=== PATIENT | female | born 1950 | race Caucasian/White ===

== ENCOUNTER → 2017-03-12 | Outpatient (CLI) | payer OTHER ==
[2017-03-12 09:31] LABS: BASOPHILS # (AUTO) 0.1 X10^3/uL (0.0-0.1); BASOPHILS % (AUTO) 1.3 % (0.2-1.0); EOSINOPHILS # (AUTO) 0.2 x10^3/uL (0.0-0.2); EOSINOPHILS % (AUTO) 2.3 % (0.9-2.9); HEMATOCRIT 37.9 % (36.0-47.0); HEMOGLOBIN 12.9 g/dL (12.0-16.0); LYMPHOCYTES # (AUTO) 1.7 X10^3/uL (1.3-2.9); MEAN CORPUSCULAR HEMOGLOBIN 31.5 pg (27.0-34.0); MEAN CORPUSCULAR VOLUME 92.5 fL (80.0-100.0); MEAN PLATELET VOLUME 7.2 fL (7.4-11.0); MONOCYTES # (AUTO) 0.6 x10^3/uL (0.3-0.8); MONOCYTES % (AUTO) 8.6 % (0.0-13.0); NEUTROPHILS # (AUTO) 4.3 x10^3/uL (2.2-4.8); NEUTROPHILS % (AUTO) 62.8 % (42.0-75.0); PLATELET COUNT 242 X10^3/uL (150.0-450.0); RED CELL DISTRIBUTION WIDTH 13.5 % (11.6-16.5); WHITE BLOOD COUNT 6.9 X10^3/uL (3.6-10.0)
[2017-03-12 10:48] LABS: ALBUMIN 3.4 g/dL (3.4-5.0); BLOOD UREA NITROGEN 9 mg/dL (7-18); CALCIUM 8.5 mg/dL (8.5-10.1); CARBON DIOXIDE 26.1 mmol/L (21-32); CHLORIDE 99 mmol/L (98-107); CHOL/HDL RATIO 2.9 (0.0-5.0); CHOLESTEROL 198 mg/dL (0-200); CREATININE 0.82 mg/dL (0.55-1.02); FREE T4 (FREE THYROXINE) 1.48 ng/dL (0.76-1.46); GLUCOSE 93 mg/dL (65-99); HDL CHOLESTEROL 68 mg/dL (40-60); PHOSPHORUS 6.1 mg/dL (2.6-4.7); SODIUM 139 mmol/L (136-145); TRIGLYCERIDES 52 mg/dL (0-150); TSH (3RD GENERATION) 0.529 uIU/mL (0.358-3.74); URIC ACID 2.5 mg/dL (2.6-6.0); eGFR BLACK RACES > 60 (>60); eGFR NON BLACK RACES > 60 (>60)
== END ==
LOC: LAB 09:02
PROVIDERS: ATTEND Internal Medicine
DX: I10 Essential (primary) hypertension (principal); E83.51 Hypocalcemia; R53.83 Other fatigue; N18.9 Chronic kidney disease, unspecified
CPT/HCPCS: 36415; 80061; 80069; 82607; 82746; 84439; 84443; 84550; 85025

== ENCOUNTER → 2017-10-22 | Outpatient (CLI) | payer OTHER ==
[2017-10-22 12:49] LABS: BASOPHILS % (AUTO) 0.4 % (0.2-1.0); EOSINOPHILS # (AUTO) 0.2 x10^3/uL (0.0-0.2); HEMATOCRIT 36.4 % (36.0-47.0); HEMOGLOBIN 12.8 g/dL (12.0-16.0); LYMPHOCYTES # (AUTO) 1.4 X10^3/uL (1.3-2.9); LYMPHOCYTES % (AUTO) 22.5 % (21.0-51.0); MEAN CORPUSCULAR HEMOGLOBIN 31.6 pg (27.0-34.0); MEAN CORPUSCULAR VOLUME 90.2 fL (80.0-100.0); MEAN PLATELET VOLUME 7.5 fL (7.4-11.0); MONOCYTES # (AUTO) 0.4 x10^3/uL (0.3-0.8); MONOCYTES % (AUTO) 7.2 % (0.0-13.0); NEUTROPHILS # (AUTO) 4.1 x10^3/uL (2.2-4.8); NEUTROPHILS % (AUTO) 66.9 % (42.0-75.0); PLATELET COUNT 199 X10^3/uL (150.0-450.0); RED BLOOD COUNT 4.04 X10^6/uL (3.5-5.4); RED CELL DISTRIBUTION WIDTH 12.7 % (11.6-16.5); WHITE BLOOD COUNT 6.1 X10^3/uL (3.6-10.0)
[2017-10-22 13:01] LABS: ALBUMIN 3.4 g/dL (3.4-5.0); BLOOD UREA NITROGEN 8 mg/dL (7-18); CALCIUM 7.4 mg/dL (8.5-10.1); CARBON DIOXIDE 30.1 mmol/L (21-32); CHLORIDE 97 mmol/L (98-107); CHOL/HDL RATIO 2.9 (0.0-5.0); CHOLESTEROL 189 mg/dL (0-200); CREATININE 0.79 mg/dL (0.55-1.02); HDL CHOLESTEROL 65 mg/dL (40-60); PHOSPHORUS 5.5 mg/dL (2.6-4.7); SODIUM 138 mmol/L (136-145); TRIGLYCERIDES 80 mg/dL (0-150); eGFR BLACK RACES > 60 (>60); eGFR NON BLACK RACES > 60 (>60)
== END ==
LOC: LAB 12:13
PROVIDERS: ATTEND Internal Medicine
DX: E83.51 Hypocalcemia (principal); I12.9 Hypertensive chronic kidney disease with stage 1 through stage 4 chronic kidney disease, or unspecified chronic kidney disease; N18.9 Chronic kidney disease, unspecified
CPT/HCPCS: 36415; 80061; 80069; 85025

== ENCOUNTER → 2018-02-11 | Outpatient (CLI) | payer OTHER ==
--- NOTE | 2018-02-11 12:41 | RAD ---
Exam: Chest two views History: Bronchitis Comparison: None Findings: Heart size and pulmonary vasculature are normal. Lungs are clear with no infiltrate or sign ificant effusion on either side. Bony thorax is unremarkable and mild degenerative changes in the tho racic spine. IMPRESSION: No acute cardiopulmonary abnormality is seen on this exam. Reported By:
[2018-02-11 12:44] LABS: BASOPHILS % (AUTO) 0.5 % (0.2-1.0); EOSINOPHILS # (AUTO) 0.2 x10^3/uL (0.0-0.2); EOSINOPHILS % (AUTO) 2.1 % (0.9-2.9); HEMATOCRIT 36.8 % (36.0-47.0); HEMOGLOBIN 12.8 g/dL (12.0-16.0); LYMPHOCYTES # (AUTO) 1.1 X10^3/uL (1.3-2.9); LYMPHOCYTES % (AUTO) 14.5 % (21.0-51.0); MEAN CORPUSCULAR HEMOGLOBIN 31.3 pg (27.0-34.0); MEAN CORPUSCULAR HGB CONC 34.8 g/dL (33.0-35.0); MEAN CORPUSCULAR VOLUME 89.8 fL (80.0-100.0); MEAN PLATELET VOLUME 7.6 fL (7.4-11.0); MONOCYTES # (AUTO) 0.4 x10^3/uL (0.3-0.8); MONOCYTES % (AUTO) 5.5 % (0.0-13.0); NEUTROPHILS % (AUTO) 77.4 % (42.0-75.0); PLATELET COUNT 240 X10^3/uL (150.0-450.0); RED BLOOD COUNT 4.09 X10^6/uL (3.5-5.4); WHITE BLOOD COUNT 7.7 X10^3/uL (3.6-10.0)
[2018-02-11 13:05] LABS: ALBUMIN 3.4 g/dL (3.4-5.0); BLOOD UREA NITROGEN 12 mg/dL (7-18); CARBON DIOXIDE 26.2 mmol/L (21-32); CHLORIDE 99 mmol/L (98-107); CREATININE 0.86 mg/dL (0.55-1.02); FREE T4 (FREE THYROXINE) 1.34 ng/dL (0.76-1.46); PHOSPHORUS 4.5 mg/dL (2.6-4.7); SODIUM 136 mmol/L (136-145); TSH (3RD GENERATION) 1.603 uIU/mL (0.358-3.74); URIC ACID 2.8 mg/dL (2.6-6.0); eGFR BLACK RACES > 60 (>60); eGFR NON BLACK RACES > 60 (>60)
== END ==
LOC: LAB 12:07
PROVIDERS: ATTEND Internal Medicine
DX: I12.9 Hypertensive chronic kidney disease with stage 1 through stage 4 chronic kidney disease, or unspecified chronic kidney disease (principal); N18.1 Chronic kidney disease, stage 1; E03.8 Other specified hypothyroidism; J44.1 Chronic obstructive pulmonary disease with (acute) exacerbation
CPT/HCPCS: 36415; 71046; 80069; 84439; 84443; 84550; 85025

== ENCOUNTER 2019-12-08 16:10 | Inpatient (IN) ==
[2019-12-08 16:18] VITALS: BMI 26.4
[2019-12-08] MEDS ORDERED: DUONEB 0.5 MG/3 MG (3 mL) NEB ONE (16:41)
--- NOTE | 2019-12-08 16:48 | DR.URIAD ---
HPI Time Seen Time Seen by Provider: 12/08/19 16:44 PCP Primary Care Physician: CARLOS DIAZ HPI Comment HPI Comment: PATIENT IS 68YR OLD FEMALE IN ER AFTER FALLING LAST NIGHT AND TODAY AT HOME. PATIENT DOES NOT NOW HOW SHE FELL. PATIENT GOT SICK ONE WEEK AGO WITH COUGH. ON ANTIBIOTIC. GIVEN ANTIBIOTIC. Complaint Chief Complaint Doctors Comments: FELL LAST NIGHT AND TODAY. COUGH ON MED TIMES ONE WEEK. Chief Complaint:: PT STATES I GOT SICK LAST WEEK AND I HAD A VERY BAD COUGH, PT [facility]ENT [facility] , SATURDAY ( PT PLACED ON ABX AND SHOT OF STEROIDS ) PT C/O NOT GETTING ANY BETTER ,,PT C/O FALLING TODAY AND NOT KNOWING HOW IT HAPPENED AND PT C/O BRUISES TO HER RIGHT ABD ) PT STATES SHE FELL LASTNIGHT AND TODAY. PT C/O BEING SORE DUE TO COUGHING ,BR Self Treatment fo Chief Complaint: DOXY, SINGULAR, AND PREDISONE Reviewed Nurses Notes Reviewed: Yes Source History Provided: Patient Mode of Arrival Mode of Arrival: Ambulatory Timing Onset of Chief Complaint: 12/01/19 Context Recent Treated Infections: None History of Respiratory: None Quality Quality of Cough: Productive and Yellow Rhinorrhea: Brown Shortness of Breath: none Associated Signs and Symptoms Other Signs and Symptoms: Cough, Myalgias and URI PMH PMH Past Medical History: Yes Past Medical History: Anxiety, COPD, Depression, GERD and Hypothyroidism Past Surgical History: Yes Surgical History: Hysterectomy Family History History of Family Medical Conditions: No Social History Does patient currently use any type of tobacco product: No Have you used tobacco products in the last 12 months: No Type of Tobacco Use: None Does any household member use tobacco: No Alcohol Use: None Do you use any recreational Drugs:: No Lives With: Family Lives Where: Home infectious screening In the last 2 months have you had wt loss of >10#?: NO Have you had fever, night sweats or hemotysis?: No Have you traveled outside the country in the last 6 months?: No Isolation: Standard ROS Review of Systems Constitutional: See HPI, Weakness and Fatigue Eyes: No Symptoms Reported and See HPI ENTM: See HPI, Nose Discharge and Nose Congestion Respiratoy: See HPI, Productive Cough, Short of Breath and Wheezing Cardiovascular: No Symptoms Reported and See HPI; negative Chest Pain Gastrointestinal/Abdominal: See HPI and Other (ABRASION RIGHT ABDOMEN.); negative Abdominal Pain, Diarrhea and Vomiting Genitourinary: No Symptoms Reported and See HPI; negative Dysuria, Frequency and Hematuria Neurological: See HPI, Headache and Weakness; negative Dizziness Musculoskeletal: See HPI and Muscle Pain Integumentary: No Symptoms Reported and See HPI; negative Change in Color and Juandice Hematologic/Lymphatic: No Symptoms Reported and See HPI; negative Easy Bruising and Swollen Glands Endocrine: See HPI and Decreased Appetite; negative Increased Thirst and Increased Urine Psychiatric: No Symptoms Reported and See HPI All Other Systems: Reviewed and Negative PE Vital Signs Vitals: Temperature 97.2 F Pulse Rate 96 Respiratory Rate 20 Blood Pressure [Right Arm] 122/78 Blood Pressure 127/63 O2 Sat by Pulse Oximetry 97 General Limitations: No Limitations General Appearance: Alert and In No Apparent Distress Head Head Exam: Normal Inspection and Atraumatic Eyes Eye exam: Normal Appearance and PERRL; negative Scleral Icterus and Conjunctival Injection ENT ENT Exam: Normal External Ear Exam; negative Normal Oropharynx and TM's Normal Bilaterally External Ear Exam: Normal External Inspection; negative Mastoid Tenderness TM/Canal Exam: Bilateral: Bulging Nose Exam: Normal Nose Exam; negative Sinus Tenderness, Nasal Deviation and Septal Hematoma Mouth Exam: Normal Inspection; negative Trismus, Lip Swelling and Tongue Swelling Throat Exam: Tonsillar Erythema; negative Tonsillomegaly and Tonsillar Exudate Neck Neck Exam: Normal Inspection and Trachea Midline; negative Tenderness and Lymphadenopathy Chest Chest Inspection: Normal Inspection and Symmetric Chest Wall Rise; negative Tenderness Respiratory Respiratory Exam: Normal Lung Sounds Bilat; negative Accessory Muscle Use, Chest Wall Tenderness and Respiratory Distress Respiratory Exam: Bilateral: Rhonchi and Lower: Rhonchi Cardiovascular Cardiovascular Exam: Regular Rate, Normal Rhythm and Normal Heart Sounds; negative Systolic Murmur and Diastolic Murmur Abdominal Exam Abdominal Exam: Normal Inspection, Normal Bowel Sounds and Soft; negative Tenderness Extremeties Extremities Exam: Normal Inspection Back Back Exam: Normal Inspection; negative (R) CVA Tenderness and (L) CVA Tenderness Neurologic Neurological Exam: Alert, Oriented X3 and CN II-XII Intact; negative Motor Sensory Deficit Psychiatric Psychiatric Exam: Normal Affect and Normal Mood Skin Skin Exam: Other (ABRSION RIGHT ABDOMEN.) MDM Differential Diagnosis Differential Diagnosis: Influenza A, Influenza B, Otitis media, Streptococcal pharyngitis, Viral pharyngitis, Pneumonia, Sinsusitis and URI COURSE Treatment Treatment: SEE ORDERS. Consultation Consultation Comments: DISCUSSED PATIENT WITH DR. MARROQUIN. HE WILL ADMIT PATIENT. Education/Counseling Education/Counseling: Patient Educated On: Diagnosis ROR Labs Reviewed Laboratory Results Reviewed?: Yes Result Diagrams: 12/18/19 04:44 12/18/19 04:44 Laboratory: WBC 16.0 X10^3/uL (3.6-10.0) H 12/08/19 16:52 RBC 3.46 X10^6/uL (3.5-5.4) L 12/08/19 16:52 Hgb 10.6 g/dL (12.0-16.0) L 12/08/19 16:52 Hct 30.9 % (36.0-47.0) L 12/08/19 16:52 MCV 89.3 fL (80.0-100.0) 12/08/19 16:52 MCH 30.8 pg (27.0-34.0) 12/08/19 16:52 MCHC 34.4 g/dL (33.0-35.0) 12/08/19 16:52 RDW 14.2 % (11.6-16.5) 12/08/19 16:52 Plt Count 331 X10^3/uL (150.0-450.0) 12/08/19 16:52 MPV 6.1 fL (7.4-11.0) L 12/08/19 16:52 Neut % (Auto) 83.5 % (42.0-75.0) H 12/08/19 16:52 Lymph % (Auto) 10.1 % (21.0-51.0) L 12/08/19 16:52 [place] % (Auto) 5.4 % (0.0-13.0) 12/08/19 16:52 Eos % (Auto) 0.7 % (0.9-2.9) L 12/08/19 16:52 Baso % (Auto) 0.3 % (0.2-1.0) 12/08/19 16:52 Neut # (Auto) 13.4 x10^3/uL (2.2-4.8) H 12/08/19 16:52 Lymph # (Auto) 1.6 X10^3/uL (1.3-2.9) 12/08/19 16:52 [place] # (Auto) 0.9 x10^3/uL (0.3-0.8) H 12/08/19 16:52 Eos # (Auto) 0.1 x10^3/uL (0.0-0.2) 12/08/19 16:52 Baso # (Auto) 0.0 X10^3/uL (0.0-0.1) 12/08/19 16:52 Absolute Nucleated RBC 0.0 /100WBC 12/08/19 16:52 Sodium 125 mmol/L (136-145) L* 12/08/19 16:52 Corrected Sodium TNP 12/08/19 16:52 Potassium 2.4 mmol/L (3.5-5.1) L* 12/08/19 16:52 Chloride 84 mmol/L (98-107) L 12/08/19 16:52 Carbon Dioxide 31.2 mmol/L (21-32) 12/08/19 16:52 BUN 15 mg/dL (7-18) 12/08/19 16:52 Creatinine 0.88 mg/dL (0.55-1.02) 12/08/19 16:52 Est GFR (MDRD) Af Amer > 60 (>60) 12/08/19 16:52 Est GFR (MDRD) Non-Af > 60 (>60) 12/08/19 16:52 Glucose 105 mg/dL (65-99) H 12/08/19 16:52 Calcium 5.5 mg/dL (8.5-10.1) L* 12/08/19 16:52 Corrected Calcium 6.5 mg/dL (8.5-10.1) L 12/08/19 16:52 Total Bilirubin 0.40 mg/dL (0.2-1.0) 12/08/19 16:52 AST 100 Units/L (15-37) H 12/08/19 16:52 ALT 46 Units/L (12-78) 12/08/19 16:52 Alkaline Phosphatase 92 Units/L (46-116) 12/08/19 16:52 Creatine Kinase 4623 Units/L (26-192) H 12/08/19 10:52 CK-MB (CK-2) 13.5 ng/mL (0-4.0) H* 12/08/19 10:52 CK/CKMB % Calc 0.3 % (<4) 12/08/19 10:52 Troponin I < 0.02 ng/mL (0-1.5) 12/08/19 10:52 Total Protein 6.7 g/dL (6.4-8.2) 12/08/19 16:52 Albumin 2.8 g/dL (3.4-5.0) L 12/08/19 16:52 Globulin 3.9 g/dL (2.5-4.5) 12/08/19 16:52 Albumin/Globulin Ratio 0.7 Ratio (1.1-2.1) L 12/08/19 16:52 Influenza Type A (PCR) Negative (NEGATIVE) 12/08/19 16:30 Influenza Type B (PCR) Negative (NEGATIVE) 12/08/19 16:30 S. pyogenes (TEM-PCR) Not detected (NOT DETECT) 12/08/19 16:30 XRAY XRAY Interpreted by: Radiologist XRAY Findings: REPORT NOTED AND DISCUSSED WITH PATIENT. Opioid Opioid Risk Tool Age (Micky box if 16-45): No History of Preadolescent Sexual Abuse: No Total: 0 Total Score Risk Category: Low Risk Copyright: Baldemar JARA predicting aberrant behaviors Diagnosis Discharge Problem: Hypomagnesemia, Hypokalemia, Acute dehydration, Bronchitis, Hypocalcemia, COPD with acute exacerbation Instructions Instructions: Fall Prevention in the Home, Adult, [id number] Rhabdomyolysis Hypokalemia Chronic Obstructive Pulmonary Disease, Sspa-nq-[id number] Hypertension, Civg-md-Cpvt Hyponatremia, [id number] Forms: Patient Portal
[2019-12-08 17:00] LABS: BASOPHILS % (AUTO) 0.3 % (0.2-1.0); EOSINOPHILS # (AUTO) 0.1 x10^3/uL (0.0-0.2); EOSINOPHILS % (AUTO) 0.7 % (0.9-2.9); HEMATOCRIT 30.9 % (36.0-47.0); HEMOGLOBIN 10.6 g/dL (12.0-16.0); LYMPHOCYTES # (AUTO) 1.6 X10^3/uL (1.3-2.9); LYMPHOCYTES % (AUTO) 10.1 % (21.0-51.0); MEAN CORPUSCULAR HEMOGLOBIN 30.8 pg (27.0-34.0); MEAN CORPUSCULAR HGB CONC 34.4 g/dL (33.0-35.0); MEAN CORPUSCULAR VOLUME 89.3 fL (80.0-100.0); MEAN PLATELET VOLUME 6.1 fL (7.4-11.0); MONOCYTES # (AUTO) 0.9 x10^3/uL (0.3-0.8); MONOCYTES % (AUTO) 5.4 % (0.0-13.0); NEUTROPHILS # (AUTO) 13.4 x10^3/uL (2.2-4.8); NEUTROPHILS % (AUTO) 83.5 % (42.0-75.0); PLATELET COUNT 331 X10^3/uL (150.0-450.0); RED BLOOD COUNT 3.46 X10^6/uL (3.5-5.4); RED CELL DISTRIBUTION WIDTH 14.2 % (11.6-16.5)
[2019-12-08 17:14] LABS: ALANINE AMINOTRANSFERASE 46 Units/L (12-78); ALBUMIN 2.8 g/dL (3.4-5.0); ALKALINE PHOSPHATASE 92 Units/L (46-116); ASPARTATE AMINO TRANSFERASE 100 Units/L (15-37); BLOOD UREA NITROGEN 15 mg/dL (7-18); CARBON DIOXIDE 31.2 mmol/L (21-32); CHLORIDE 84 mmol/L (98-107); COR CA(FOR HYPOALB) 6.5 mg/dL (8.5-10.1); CREATININE 0.88 mg/dL (0.55-1.02); TOTAL PROTEIN 6.7 g/dL (6.4-8.2); eGFR NON BLACK RACES > 60 (>60)
[2019-12-08 17:15] LABS: SODIUM 125 mmol/L (136-145)
[2019-12-08 17:17] LABS: CALCIUM 5.5 mg/dL (8.5-10.1)
[2019-12-08] MEDS ORDERED: NS 1000 ML 1,000 ML ONE (17:18)
[2019-12-08 17:19] LABS: STREP A BY PCR NOT DETECTED (NOT DETECT)
[2019-12-08] MEDS ORDERED: K-LYTE EFFERVESCENT PO ONE (17:22)
[2019-12-08] MEDS ORDERED: K-LYTE EFFERVESCENT ONE (17:23)
--- NOTE | 2019-12-08 17:32 | RAD ---
HISTORY:Cough, congestion, coldStudy: PA and lateral views of the chestComparison:NoneFindings:Lungs are mildly hyperinflated. No infiltrate, effusion, or pneumothorax identified .Cardiac and mediastinal contours are within normal limits.There are degenerative changes of the bony thorax..IMPRESSION:1. No acute cardiopulmonary abnormality.Electronically signed by: ELTON WAITE (Dec 08, 2019 17:30:49)
[2019-12-08] MEDS ORDERED: NS 1000 ML 1,000 ML IV SCH (18:00)
[2019-12-08] MEDS ORDERED: POTASSIUM CHL 40 MEQ/NS 0.45% 500 ML IV PRN (19:17)
[2019-12-08] MEDS ORDERED: POTASSIUM CHLORIDE LIQ 20 MEQ UDC PO PRN (19:17)
[2019-12-08] MEDS ORDERED: MICRO K EXTEN CAP 10 MEQ PO PRN (19:17)
[2019-12-08] MEDS ORDERED: KLOR-CON PO PRN (19:17)
[2019-12-08] MEDS ORDERED: POTASSIUM CHL 60 MEQ/NS 0.45% 500 ML IV PRN (19:17)
[2019-12-08] MEDS ORDERED: K-RIDER 10 MEQ/NS 100 ML 10 MEQ/100 ML BAG IV PRN (19:17)
[2019-12-08] MEDS ORDERED: LEVAQUIN PREMIX IV 250 MG 250 MG/50 ML BAG IV SCH (20:00)
[2019-12-08] MEDS: DUONEB 0.5 MG/3 MG (3 mL) NEB SCH (20:37)
[2019-12-08] MEDS: PULMICORT NEB TX 0.5 MG NEB SCH (20:37)
[2019-12-08] MEDS: NORCO 5/325 MG TAB PO PRN (21:18)
[2019-12-08] MEDS: PROzac PO SCH (21:19)
[2019-12-08] MEDS: RESTORIL CAP 30 MG PO SCH (21:19)
[2019-12-08] MEDS: SOLU-Medrol 40 MG VIAL IVP SCH (21:19)
[2019-12-08] MEDS: VIBRAMYCIN 100 MG in D5W 250 ML IV 250 ML IV SCH (21:26)
[2019-12-08] MEDS: K-DUR TAB 20 MEQ PO PRN (21:32)
[2019-12-08] MEDS ORDERED: NS + KCL 20 MEQ/L 1,000 ML IV ONE (22:24)
[2019-12-08] MEDS: NS + KCL 20 MEQ/L 1,000 ML IV SCH (22:35)
[2019-12-08] MEDS: LEVAQUIN PREMIX IV 500 MG 500 MG/100 ML BAG IV SCH (23:00)
[2019-12-08 23:33] LABS: BILIRUBIN,URINE NEGATIVE (NEGATIVE); BLOOD/HEMOGLOBIN,URINE NEGATIVE (NEGATIVE); GLUCOSE, URINE NEGATIVE (NEGATIVE); KETONES,URINE NEGATIVE (NEGATIVE); LEUKOCYTE ESTERASE ,URINE NEGATIVE (NEGATIVE); NITRITES,URINE NEGATIVE (NEGATIVE); PROTEIN,URINE 2+ (NEGATIVE); UROBILINOGEN,URINE 1+ (NORMAL)
[2019-12-08 23:50] LABS: TROPONIN I < 0.02 ng/mL (0-1.5)
[2019-12-08 23:51] LABS: APPEARANCE,URINE CLEAR (CLEAR); COLOR,URINE DARK YELLOW (YELLOW)
[2019-12-08 23:52] LABS: AMORPHOUS SEDIMENT,UR 1+ /HPF (NEGATIVE); BACTERIA,URINE TRACE /HPF (NEGATIVE); MUCUS,URINE FEW /HPF (NEGATIVE); RBC,URINE NONE SEEN /HPF (0-3); SQUAMOUS EPITHELIAL CELL,UR MODERATE /HPF (NEGATIVE)
[2019-12-08 23:54] LABS: CKMB % 0.3 % (<4); CREATINE KINASE 4623 Units/L (26-192); CREATINE KINASE MB 13.5 ng/mL (0-4.0)
[2019-12-09] MEDS: MAGNESIUM SULFATE 1 GRAM/100 mL PREMIX 1 GM/100 ML BAG IV PRN ×7 (00:43→06:29)
[2019-12-09] MEDS: DUONEB 0.5 MG/3 MG (3 mL) NEB SCH ×6 (01:20→20:27)
[2019-12-09] MEDS ORDERED: ROCALTROL PO ONE (02:31)
[2019-12-09] MEDS: ROCALTROL PO SCH (02:49)
[2019-12-09] MEDS: NORCO 5/325 MG TAB PO PRN ×4 (03:40→22:27)
[2019-12-09] MEDS: XANAX PO PRN (03:41)
[2019-12-09 06:05] LABS: BASOPHILS % (AUTO) 0.1 % (0.2-1.0); HEMATOCRIT 27.9 % (36.0-47.0); HEMOGLOBIN 9.7 g/dL (12.0-16.0); LYMPHOCYTES # (AUTO) 0.5 X10^3/uL (1.3-2.9); LYMPHOCYTES % (AUTO) 4.2 % (21.0-51.0); MEAN CORPUSCULAR HEMOGLOBIN 31.1 pg (27.0-34.0); MEAN CORPUSCULAR HGB CONC 34.7 g/dL (33.0-35.0); MEAN CORPUSCULAR VOLUME 89.6 fL (80.0-100.0); MEAN PLATELET VOLUME 6.7 fL (7.4-11.0); MONOCYTES # (AUTO) 0.2 x10^3/uL (0.3-0.8); MONOCYTES % (AUTO) 1.2 % (0.0-13.0); NEUTROPHILS # (AUTO) 11.8 x10^3/uL (2.2-4.8); NEUTROPHILS % (AUTO) 94.5 % (42.0-75.0); PLATELET COUNT 302 X10^3/uL (150.0-450.0); RED BLOOD COUNT 3.12 X10^6/uL (3.5-5.4); RED CELL DISTRIBUTION WIDTH 14.2 % (11.6-16.5); WHITE BLOOD COUNT 12.5 X10^3/uL (3.6-10.0)
[2019-12-09 07:16] LABS: PLATELET MORPHOLOGY COMMENT NORMAL (NORMAL)
[2019-12-09 07:35] LABS: ALANINE AMINOTRANSFERASE 47 Units/L (12-78); ALBUMIN 2.6 g/dL (3.4-5.0); ALKALINE PHOSPHATASE 87 Units/L (46-116); ASPARTATE AMINO TRANSFERASE 95 Units/L (15-37); BLOOD UREA NITROGEN 10 mg/dL (7-18); CHLORIDE 86 mmol/L (98-107); COR CA(FOR HYPOALB) 6.2 mg/dL (8.5-10.1); COR NA(FOR HYPERGLY) 128 mmol/L (136-145); CREATININE 0.84 mg/dL (0.55-1.02); MAGNESIUM 2.1 mg/dL (1.7-2.9); SODIUM 126 mmol/L (136-145); TOTAL PROTEIN 6.4 g/dL (6.4-8.2); TROPONIN I < 0.02 ng/mL (0-1.5); eGFR NON BLACK RACES > 60 (>60)
[2019-12-09 07:36] LABS: CALCIUM 5.1 mg/dL (8.5-10.1)
[2019-12-09 07:37] LABS: CKMB % 0.2 % (<4); CREATINE KINASE 4730 Units/L (26-192); CREATINE KINASE MB 11.3 ng/mL (0-4.0)
[2019-12-09] MEDS: PULMICORT NEB TX 0.5 MG NEB SCH ×2 (08:58→20:27)
[2019-12-09] MEDS ORDERED: TIOTROPIUM BROMIDE IN SCH (09:00)
[2019-12-09] MEDS: LEVAQUIN PREMIX IV 500 MG 500 MG/100 ML BAG IV SCH (09:58)
[2019-12-09] MEDS: VIBRAMYCIN 100 MG in D5W 250 ML IV 250 ML IV SCH ×2 (09:58→21:00)
[2019-12-09] MEDS: SOLU-Medrol 40 MG VIAL IVP SCH ×2 (09:58→21:00)
[2019-12-09] MEDS: CLARITIN PO SCH (10:00)
[2019-12-09] MEDS: PROzac PO SCH ×2 (10:00→21:01)
[2019-12-09] MEDS: PROTONIX TAB 40 MG PO SCH (10:00)
[2019-12-09 13:01] LABS: TROPONIN I < 0.02 ng/mL (0-1.5)
[2019-12-09 13:07] LABS: CKMB % 0.2 % (<4); CREATINE KINASE 5006 Units/L (26-192); CREATINE KINASE MB 11.1 ng/mL (0-4.0)
[2019-12-09 13:54] LABS: ABG BASE EXCESS 7.3 mmol/L (-2.0-2.0)
[2019-12-09 13:55] LABS: ABG ALLEN TEST POS; ABG HCO3 33.1 mmol/L (22-26)
--- NOTE | 2019-12-09 15:38 | DR.H&P ---
H&P - History & Physical for Day of: H&P Date: 12/08/19 - Chief Complaint Chief Complaint: CCC, FEVER, WEAKNESS - History of Present Illness History of Present Illness: PT IS 68 WF ER ADMISSION WITH CO WEAKNESS FOLLOWING UPPER RESPIRATORY ILLNESS. PT HAS TAKEN PO DOXYCYLINE AND PREDNISONE WITHOUT IMPROVEMENT. PT HAS PMH OF COPD. PT ZAIRA CARDIAC HISTORY. PT HYPONATREMIC ON ADMISSION LABS. PT ADMITTED FOR TREATMENT OF ACUTE ILLNESS - Past Medical History Past Medical History: Depression, Anxiety, Hypothyroidism, COPD, GERD - Past Surgical History Surgical History: Hysterectomy - Family History Family Medical History: Diabetes Mellitus, Hypertension - Social History Does patient currently use any type of tobacco product: No Have you used tobacco products in the last 12 months: No Type of Tobacco Use: None Does any household member use tobacco: No Alcohol Use: None Drug Use: None - Medications Home Medications: amoxicillin [From Augmentin] Allergy (Verified 12/08/19 16:11) clavulanic acid [From Augmentin] Allergy (Verified 12/08/19 16:11) CONTINUE taking the following medications Calcitrol 0.5 mcg PO DAILY 12/08/19 [History] albuterol sulfate [ProAir HFA] 2 inh INHALATION Q6H PRN 12/08/19 [History] alprazolam [Xanax] 0.5 mg PO QID PRN 12/08/19 [History] budesonide-formoterol [Symbicort] 2 inh INHALATION BID 12/08/19 [History] doxycycline hyclate 100 mg PO BID 12/08/19 [History] flu vacc [id number] 6mos up(PF) [Fluzone Quad (PF)] 0.5 IM 12/08/19 [History] fluoxetine [Prozac] 40 mg PO BID 12/08/19 [History] hydrocodone-acetaminophen 1 tab PO Q6H PRN 12/08/19 [History] loratadine 10 mg PO DAILY 12/08/19 [History] pantoprazole [Protonix] 40 mg PO DAILY 12/08/19 [History] prednisone 10 mg PO BID 12/08/19 [History] temazepam 30 mg PO HS 12/08/19 [History] tiotropium bromide [Spiriva Respimat] 2 inh INHALATION DAILY 12/08/19 [History] - Review of Systems Constitutional: Sweats, Weakness Eyes: No Symptoms Reported ENT: No Symptoms Reported Respiratory: Cough, Shortness of Breath, SOB with Excertion, Pleuritic Pain, Sputum, Wheezing Cardiovascular: Chest Pain ("FROM COUGHING SO MUCH"). denies: Edema Gastrointestinal: Abdominal Pain Genitourinary: No Symptoms Reported Musculoskeletal: Back Pain Skin: No Symptoms Reported Neurological: Weakness - Physical Exam Vital Signs: Temperature 97.7 F Pulse Rate [Right Brachial] 76 Pulse Rate [Left Radial] 75 Pulse Rate 79 Respiratory Rate 18 Blood Pressure [Left Arm] 118/58 Blood Pressure [Right Arm] 123/58 Blood Pressure 127/63 O2 Sat by Pulse Oximetry 92 Oriented: Normal Eyes: Normal Ear: Normal Nose: Discharge Throat: Red, Dry Respiratory: Wheezes Throughout, RLL Diminished, LLL Diminished Cardiovascular: Tachycardia. negative: Edema : Normal Auscultation: Bowel Sounds: Normal Palpation: Normal Skin: Decreased Turgur Musculoskeletal: Back:Thoracic, Back:Lumbar Psychiatric: Anxiety Affect: Anxious Speech Pattern: Clear, Appropriate - Assessment/Plan (1) Acute bronchitis with COPD Status: Acute Plan: ADMIT, RESP CONSULT. SPUTUM AND BLOOD CULTURES ORDERED ON ADMISSION. GENTLE IV HYDRATION, ENCOURAGE ORAL HYDRATION. BP MONITORING, CARDIAC MONITORING, SERIAL CE. STRICT I &OS (2) Hyponatremia Status: Acute (3) Hypokalemia Status: Acute (4) Hypertension Status: Acute (5) Rhabdomyolysis Status: Acute - Allergies Allergies/Adverse Reactions: Allergies Allergy/AdvReac Type Severity Reaction Status Date / Time amoxicillin [From Augmentin] Allergy Verified 12/08/19 16:11 clavulanic acid Allergy Verified 12/08/19 16:11 [From Augmentin]
[2019-12-09] MEDS: NS + KCL 20 MEQ/L 1,000 ML IV SCH ×3 (16:32→23:11)
[2019-12-09] MEDS: LOVENOX INJ 40 MG SYR SC SCH (16:33)
[2019-12-09] MEDS: K-DUR TAB 20 MEQ PO PRN (16:34)
[2019-12-09 18:37] LABS: TROPONIN I < 0.02 ng/mL (0-1.5)
[2019-12-09 19:11] LABS: CKMB % 0.1 % (<4); CREATINE KINASE 8669 Units/L (26-192)
[2019-12-09 19:13] LABS: CREATINE KINASE MB 10.9 ng/mL (0-4.0)
[2019-12-09] MEDS: RESTORIL CAP 30 MG PO SCH (21:00)
[2019-12-10 00:33] LABS: TROPONIN I < 0.02 ng/mL (0-1.5)
[2019-12-10 00:37] LABS: CREATINE KINASE MB 6.3 ng/mL (0-4.0)
[2019-12-10] MEDS: XANAX PO PRN (01:00)
[2019-12-10] MEDS: DUONEB 0.5 MG/3 MG (3 mL) NEB SCH ×7 (01:09→21:10)
[2019-12-10] MEDS: NORCO 5/325 MG TAB PO PRN ×2 (03:40→21:51)
[2019-12-10 05:25] LABS: BASOPHILS % (AUTO) 0.1 % (0.2-1.0); HEMATOCRIT 25.5 % (36.0-47.0); HEMOGLOBIN 8.8 g/dL (12.0-16.0); LYMPHOCYTES # (AUTO) 0.9 X10^3/uL (1.3-2.9); LYMPHOCYTES % (AUTO) 4.6 % (21.0-51.0); MEAN CORPUSCULAR HEMOGLOBIN 31.6 pg (27.0-34.0); MEAN CORPUSCULAR HGB CONC 34.6 g/dL (33.0-35.0); MEAN CORPUSCULAR VOLUME 91.2 fL (80.0-100.0); MEAN PLATELET VOLUME 6.8 fL (7.4-11.0); MONOCYTES # (AUTO) 0.5 x10^3/uL (0.3-0.8); MONOCYTES % (AUTO) 2.7 % (0.0-13.0); NEUTROPHILS # (AUTO) 18.2 x10^3/uL (2.2-4.8); NEUTROPHILS % (AUTO) 92.6 % (42.0-75.0); PLATELET COUNT 289 X10^3/uL (150.0-450.0); RED BLOOD COUNT 2.79 X10^6/uL (3.5-5.4); RED CELL DISTRIBUTION WIDTH 14.7 % (11.6-16.5); WHITE BLOOD COUNT 19.6 X10^3/uL (3.6-10.0)
[2019-12-10 06:15] LABS: ALANINE AMINOTRANSFERASE 45 Units/L (12-78); ALBUMIN 2.5 g/dL (3.4-5.0); ALKALINE PHOSPHATASE 76 Units/L (46-116); ASPARTATE AMINO TRANSFERASE 74 Units/L (15-37); BLOOD UREA NITROGEN 7 mg/dL (7-18); CARBON DIOXIDE 30.8 mmol/L (21-32); CHLORIDE 93 mmol/L (98-107); COR CA(FOR HYPOALB) 6.2 mg/dL (8.5-10.1); COR NA(FOR HYPERGLY) 130 mmol/L (136-145); CREATININE 0.79 mg/dL (0.55-1.02); SODIUM 129 mmol/L (136-145); TOTAL PROTEIN 6.1 g/dL (6.4-8.2); TROPONIN I < 0.02 ng/mL (0-1.5); eGFR NON BLACK RACES > 60 (>60)
[2019-12-10 06:30] LABS: CALCIUM < 5.0 mg/dL (8.5-10.1); CKMB % 0.2 % (<4); CREATINE KINASE MB 6.7 ng/mL (0-4.0)
[2019-12-10 06:31] LABS: CREATINE KINASE 4216 Units/L (26-192)
[2019-12-10] MEDS: NS + KCL 20 MEQ/L 1,000 ML IV SCH (06:37)
[2019-12-10 07:05] LABS: BAND NEUTROPHILS % 3 % (0-10); PLATELET MORPHOLOGY COMMENT NORMAL (NORMAL)
[2019-12-10] MEDS: PULMICORT NEB TX 0.5 MG NEB SCH ×3 (07:52→21:10)
[2019-12-10] MEDS: LEVAQUIN PREMIX IV 500 MG 500 MG/100 ML BAG IV SCH (09:12)
[2019-12-10] MEDS: VIBRAMYCIN 100 MG in D5W 250 ML IV 250 ML IV SCH ×2 (09:12→21:46)
[2019-12-10] MEDS: LOVENOX INJ 40 MG SYR SC SCH (09:13)
[2019-12-10] MEDS: ROCALTROL PO SCH (09:13)
[2019-12-10] MEDS: SOLU-Medrol 40 MG VIAL IVP SCH (09:13)
[2019-12-10] MEDS: PROTONIX TAB 40 MG PO SCH (09:13)
[2019-12-10] MEDS: CLARITIN PO SCH (09:13)
[2019-12-10] MEDS: PROzac PO SCH ×2 (09:13→21:46)
[2019-12-10 09:48] LABS: CKMB % 0.1 % (<4); CREATINE KINASE 5007 Units/L (26-192)
--- NOTE | 2019-12-10 10:41 | RAD ---
HISTORYCOPD with bronchitisSTUDYPA and lateral chestCOMPARISONJanuary 2019FINDINGSThe lungs are hyperinflated. There are chronic interstitial changes. The heart and mediastinum are unremarkable. There is no edema or effusion. There is no focal lung consolidation. There are mild degenerative changes in the thoracic spine.IMPRESSIONNo evidence for acute cardiopulmonary diseaseElectronically signed by: JOSE DAVID SCHWARTZ (Dec 10, 2019 10:40:23)
--- NOTE | 2019-12-10 11:41 | CT ---
HISTORYABDOMINAL PAIN/BRUISINGSTUDYABDOMEN/PELVIS W/O CONCOMPARISONNone noneTECHNIQUEMultiple axial images of the abdomen and pelvis were obtained from the lung bases to the pubic symphysis without the administration of IV contrast. Dose reduction techniques including Automated Exposure Control (AEC) and adjustment of mA and kV were utilized.FINDINGSSubsegmental atelectasis and/or scarring are seen within visualized lungs. Superimposed right lower lobe infiltrate and/or underlying right lower lobe nodule/mass cannot be excluded. Recommend clinical correlation and short interval follow-up for further evaluation. The liver, spleen, pancreas, adrenals, and kidneys are grossly unremarkable in appearance given the limitations of this noncontrast exam. No CT evidence of hydronephrosis is identified. Cholelithiasis is noted and may be further evaluated with ultrasound as clinically indicated. The appendix is partially air-filled and otherwise grossly unremarkable. A moderate to large amount of stool is seen within portions of the colon. Edematous changes of the overlying subcutaneous soft tissues are noted. Correlate clinically. Otherwise evaluation of the stomach, small bowel, colon is limited without oral contrast. The urinary bladder is somewhat distended but otherwise grossly unremarkable. Degenerative changes are seen within the visualized spine.IMPRESSIONRight basilar airspace disease as discussed above. Correlate clinically.Cholelithiasis which may be further evaluated with ultrasound as clinically indicated.Other findings as noted above.Electronically signed by: ARLET AVENDANO (Dec 10, 2019 11:40:32)
[2019-12-10 11:51] LABS: BASOPHILS % (AUTO) 0.2 % (0.2-1.0); HEMATOCRIT 28.5 % (36.0-47.0); HEMOGLOBIN 9.7 g/dL (12.0-16.0); LYMPHOCYTES # (AUTO) 0.9 X10^3/uL (1.3-2.9); LYMPHOCYTES % (AUTO) 4.3 % (21.0-51.0); MEAN CORPUSCULAR HEMOGLOBIN 31.2 pg (27.0-34.0); MEAN CORPUSCULAR HGB CONC 34.1 g/dL (33.0-35.0); MEAN CORPUSCULAR VOLUME 91.5 fL (80.0-100.0); MEAN PLATELET VOLUME 6.5 fL (7.4-11.0); MONOCYTES # (AUTO) 0.5 x10^3/uL (0.3-0.8); MONOCYTES % (AUTO) 2.4 % (0.0-13.0); NEUTROPHILS # (AUTO) 18.8 x10^3/uL (2.2-4.8); NEUTROPHILS % (AUTO) 93.1 % (42.0-75.0); PLATELET COUNT 313 X10^3/uL (150.0-450.0); RED BLOOD COUNT 3.11 X10^6/uL (3.5-5.4); RED CELL DISTRIBUTION WIDTH 14.6 % (11.6-16.5); WHITE BLOOD COUNT 20.2 X10^3/uL (3.6-10.0)
[2019-12-10 12:00] LABS: BAND NEUTROPHILS % 5 % (0-10); PLATELET MORPHOLOGY COMMENT NORMAL (NORMAL)
[2019-12-10] MEDS: MAALOX or MYLANTA PO PRN (12:50)
[2019-12-10] MEDS: RESTORIL CAP 30 MG PO SCH (21:46)
[2019-12-11] MEDS: DUONEB 0.5 MG/3 MG (3 mL) NEB SCH ×6 (00:55→20:55)
[2019-12-11] MEDS: XANAX PO PRN (01:35)
[2019-12-11] MEDS: NS + KCL 20 MEQ/L 1,000 ML IV SCH ×4 (03:58→21:25)
[2019-12-11] MEDS: NORCO 5/325 MG TAB PO PRN ×3 (03:58→21:27)
[2019-12-11] MEDS: ROBITUSSIN DM PO PRN ×2 (03:59→21:26)
[2019-12-11] MEDS ORDERED: ROBITUSSIN (PLAIN) ONE (03:59)
[2019-12-11 06:15] LABS: BASOPHILS % (AUTO) 0.1 % (0.2-1.0); EOSINOPHILS % (AUTO) 0.1 % (0.9-2.9); HEMATOCRIT 27.6 % (36.0-47.0); HEMOGLOBIN 9.4 g/dL (12.0-16.0); LYMPHOCYTES % (AUTO) 9.4 % (21.0-51.0); MEAN CORPUSCULAR HEMOGLOBIN 31.2 pg (27.0-34.0); MEAN CORPUSCULAR HGB CONC 34.1 g/dL (33.0-35.0); MEAN CORPUSCULAR VOLUME 91.6 fL (80.0-100.0); MEAN PLATELET VOLUME 6.6 fL (7.4-11.0); MONOCYTES # (AUTO) 1.3 x10^3/uL (0.3-0.8); NEUTROPHILS # (AUTO) 17.8 x10^3/uL (2.2-4.8); NEUTROPHILS % (AUTO) 84.4 % (42.0-75.0); PLATELET COUNT 324 X10^3/uL (150.0-450.0); RED BLOOD COUNT 3.01 X10^6/uL (3.5-5.4); RED CELL DISTRIBUTION WIDTH 14.5 % (11.6-16.5); WHITE BLOOD COUNT 21.1 X10^3/uL (3.6-10.0)
[2019-12-11 06:33] LABS: ALANINE AMINOTRANSFERASE 45 Units/L (12-78); ALBUMIN 2.6 g/dL (3.4-5.0); ALKALINE PHOSPHATASE 74 Units/L (46-116); ASPARTATE AMINO TRANSFERASE 66 Units/L (15-37); BLOOD UREA NITROGEN 9 mg/dL (7-18); CARBON DIOXIDE 31.6 mmol/L (21-32); CHLORIDE 94 mmol/L (98-107); COR CA(FOR HYPOALB) 6.1 mg/dL (8.5-10.1); CREATININE 0.79 mg/dL (0.55-1.02); SODIUM 132 mmol/L (136-145); TOTAL PROTEIN 6.2 g/dL (6.4-8.2); eGFR NON BLACK RACES > 60 (>60)
[2019-12-11 06:36] LABS: BAND NEUTROPHILS % 3 % (0-10); PLATELET MORPHOLOGY COMMENT NORMAL (NORMAL)
[2019-12-11 06:47] LABS: CALCIUM < 5.0 mg/dL (8.5-10.1)
[2019-12-11 06:48] LABS: CREATINE KINASE 3701 Units/L (26-192)
[2019-12-11] MEDS: PULMICORT NEB TX 0.5 MG NEB SCH ×2 (08:52→20:55)
[2019-12-11] MEDS: LEVAQUIN PREMIX IV 500 MG 500 MG/100 ML BAG IV SCH (09:58)
[2019-12-11] MEDS: ROCALTROL PO SCH (09:59)
[2019-12-11] MEDS: PROzac PO SCH ×2 (09:59→21:28)
[2019-12-11] MEDS: CLARITIN PO SCH (10:00)
[2019-12-11] MEDS: MIRALAX POWDER (1 DOSE 17 G) PO SCH (10:00)
[2019-12-11] MEDS: PROTONIX TAB 40 MG PO SCH (10:00)
[2019-12-11] MEDS: LOVENOX INJ 40 MG SYR SC SCH (10:02)
[2019-12-11] MEDS: TUMS PO SCH ×3 (10:03→21:28)
[2019-12-11] MEDS: VIBRAMYCIN 100 MG in D5W 250 ML IV 250 ML IV SCH ×2 (11:14→21:26)
--- NOTE | 2019-12-11 11:18 | RAD ---
HISTORYcopd, coughSTUDYCHEST, PA/LAT [id number]/16/2020.FINDINGSThe trachea is midline. The cardiac silhouette is enlarged with aortic uncoiling.. There is hyperinflation of the lungs. Left lungs clear. Better seen on the lateral view there is a small focus of atelectasis or infiltrate in the right lung base region posteriorly and medially. No CHF, pleural fluid or pneumothorax is seen.. The bony thorax is unremarkable.IMPRESSIONCOPD with right basilar focus of atelectasis or infiltrate, better seen on the lateral view.Electronically signed by: DOROTHEA SUTTON (Dec 11, 2019 11:16:29)
[2019-12-11] MEDS ORDERED: TUMS ONE (13:41)
[2019-12-11] MEDS: RESTORIL CAP 30 MG PO SCH (21:27)
[2019-12-12] MEDS: DUONEB 0.5 MG/3 MG (3 mL) NEB SCH ×6 (00:49→20:41)
[2019-12-12] MEDS: TUMS PO SCH ×3 (05:54→21:08)
[2019-12-12 06:04] LABS: BASOPHILS % (AUTO) 0.1 % (0.2-1.0); EOSINOPHILS # (AUTO) 0.2 x10^3/uL (0.0-0.2); EOSINOPHILS % (AUTO) 1.7 % (0.9-2.9); HEMOGLOBIN 9.5 g/dL (12.0-16.0); LYMPHOCYTES % (AUTO) 13.6 % (21.0-51.0); MEAN CORPUSCULAR HEMOGLOBIN 31.1 pg (27.0-34.0); MEAN CORPUSCULAR HGB CONC 34.1 g/dL (33.0-35.0); MEAN CORPUSCULAR VOLUME 91.3 fL (80.0-100.0); MEAN PLATELET VOLUME 6.4 fL (7.4-11.0); MONOCYTES % (AUTO) 7.1 % (0.0-13.0); NEUTROPHILS # (AUTO) 11.2 x10^3/uL (2.2-4.8); NEUTROPHILS % (AUTO) 77.5 % (42.0-75.0); PLATELET COUNT 317 X10^3/uL (150.0-450.0); RED BLOOD COUNT 3.07 X10^6/uL (3.5-5.4); RED CELL DISTRIBUTION WIDTH 14.8 % (11.6-16.5); WHITE BLOOD COUNT 14.4 X10^3/uL (3.6-10.0)
--- NOTE | 2019-12-12 06:05 | RAD ---
HISTORYSOBSTUDYCHEST, 1 [id number]/2018FINDINGSHeart size unchanged. Chronic interstitial lung changes without focal airspace opacity, pleural effusion or pneumothorax. The lungs demonstrate interstitial coarsening, upper lobe predominant increased lucency and hyperexpansion which are consistent with changes associated with COPD. No acute osseous abnormality. Small hiatal hernia.IMPRESSIONChronic interstitial lung changes and COPD without acute airspace disease or CHF.Small hiatal hernia.Electronically signed by: SUPRIYA FLORES (Dec 12, 2019 06:04:17)
[2019-12-12 06:29] LABS: ALANINE AMINOTRANSFERASE 41 Units/L (12-78); ALBUMIN 2.6 g/dL (3.4-5.0); ALKALINE PHOSPHATASE 71 Units/L (46-116); ASPARTATE AMINO TRANSFERASE 58 Units/L (15-37); BLOOD UREA NITROGEN 8 mg/dL (7-18); CHLORIDE 91 mmol/L (98-107); COR CA(FOR HYPOALB) 6.1 mg/dL (8.5-10.1); CREATININE 0.77 mg/dL (0.55-1.02); SODIUM 129 mmol/L (136-145); eGFR NON BLACK RACES > 60 (>60)
[2019-12-12 06:49] LABS: CALCIUM < 5.0 mg/dL (8.5-10.1)
[2019-12-12] MEDS: CLARITIN PO SCH (08:15)
[2019-12-12] MEDS: ROCALTROL PO SCH (08:15)
[2019-12-12] MEDS: MIRALAX POWDER (1 DOSE 17 G) PO SCH (08:16)
[2019-12-12] MEDS: PROTONIX TAB 40 MG PO SCH (08:17)
[2019-12-12] MEDS: PROzac PO SCH ×2 (08:17→21:07)
[2019-12-12] MEDS: LOVENOX INJ 40 MG SYR SC SCH (08:18)
[2019-12-12] MEDS: LEVAQUIN PREMIX IV 500 MG 500 MG/100 ML BAG IV SCH (08:18)
[2019-12-12] MEDS: NORCO 5/325 MG TAB PO PRN ×2 (08:52→21:15)
[2019-12-12] MEDS: PULMICORT NEB TX 0.5 MG NEB SCH ×2 (09:00→20:41)
[2019-12-12] MEDS: VIBRAMYCIN 100 MG in D5W 250 ML IV 250 ML IV SCH ×2 (10:30→21:07)
[2019-12-12] MEDS: MAALOX or MYLANTA PO PRN (11:36)
[2019-12-12] MEDS: RESTORIL CAP 30 MG PO SCH (21:07)
[2019-12-12] MEDS: NS + KCL 20 MEQ/L 1,000 ML IV SCH ×4 (21:14→23:36)
[2019-12-13] MEDS: DUONEB 0.5 MG/3 MG (3 mL) NEB SCH ×6 (00:50→20:54)
[2019-12-13 05:11] LABS: BASOPHILS % (AUTO) 0.1 % (0.2-1.0); EOSINOPHILS # (AUTO) 0.2 x10^3/uL (0.0-0.2); EOSINOPHILS % (AUTO) 1.4 % (0.9-2.9); HEMATOCRIT 24.6 % (36.0-47.0); HEMOGLOBIN 8.6 g/dL (12.0-16.0); LYMPHOCYTES # (AUTO) 1.8 X10^3/uL (1.3-2.9); LYMPHOCYTES % (AUTO) 13.6 % (21.0-51.0); MEAN CORPUSCULAR VOLUME 91.4 fL (80.0-100.0); MEAN PLATELET VOLUME 6.8 fL (7.4-11.0); MONOCYTES # (AUTO) 0.9 x10^3/uL (0.3-0.8); MONOCYTES % (AUTO) 7.2 % (0.0-13.0); NEUTROPHILS # (AUTO) 10.2 x10^3/uL (2.2-4.8); NEUTROPHILS % (AUTO) 77.7 % (42.0-75.0); PLATELET COUNT 290 X10^3/uL (150.0-450.0); RED CELL DISTRIBUTION WIDTH 14.9 % (11.6-16.5); WHITE BLOOD COUNT 13.1 X10^3/uL (3.6-10.0)
[2019-12-13 05:38] LABS: ALANINE AMINOTRANSFERASE 36 Units/L (12-78); ALBUMIN 2.3 g/dL (3.4-5.0); ALKALINE PHOSPHATASE 64 Units/L (46-116); ASPARTATE AMINO TRANSFERASE 49 Units/L (15-37); BLOOD UREA NITROGEN 8 mg/dL (7-18); CHLORIDE 91 mmol/L (98-107); CREATINE KINASE MB 3.9 ng/mL (0-4.0); CREATININE 0.76 mg/dL (0.55-1.02); SODIUM 130 mmol/L (136-145); TOTAL PROTEIN 5.5 g/dL (6.4-8.2); TROPONIN I < 0.02 ng/mL (0-1.5); eGFR NON BLACK RACES > 60 (>60)
[2019-12-13] MEDS: TUMS PO SCH ×3 (05:38→21:15)
--- NOTE | 2019-12-13 06:31 | RAD ---
HISTORYSOBSTUDYCHEST, 1 [id number]/18/2020FINDINGSTrachea is midline. Heart size is normal. Chronic interstitial lung changes and COPD are noted with increasing patchy opacity within the right lung base consistent with developing infiltrate/pneumonia. No pleural effusion or pneumothorax. Small sliding hiatal hernia.IMPRESSIONCOPD with patchy opacity within the right lung base consistent with a developed infiltrate/pneumonia. Radiographic follow-up in 4-6 weeks is recommended to ensure resolution.Small hiatal hernia.Electronically signed by: SUPRIYA FLORES (Dec 13, 2019 06:29:20)
[2019-12-13] MEDS: PULMICORT NEB TX 0.5 MG NEB SCH ×2 (09:00→20:55)
[2019-12-13] MEDS: LEVAQUIN PREMIX IV 500 MG 500 MG/100 ML BAG IV SCH (09:54)
[2019-12-13] MEDS: PROTONIX TAB 40 MG PO SCH (09:55)
[2019-12-13] MEDS: CLARITIN PO SCH (09:55)
[2019-12-13] MEDS: ROCALTROL PO SCH (09:55)
[2019-12-13] MEDS: VIBRAMYCIN 100 MG in D5W 250 ML IV 250 ML IV SCH ×2 (09:56→21:16)
[2019-12-13] MEDS: MIRALAX POWDER (1 DOSE 17 G) PO SCH (09:56)
[2019-12-13] MEDS: PROzac PO SCH ×2 (09:56→21:13)
[2019-12-13] MEDS: LOVENOX INJ 40 MG SYR SC SCH (09:57)
[2019-12-13] MEDS: NS + KCL 20 MEQ/L 1,000 ML IV SCH ×2 (09:57→18:54)
[2019-12-13] MEDS: K-DUR TAB 20 MEQ PO PRN (10:14)
[2019-12-13] MEDS: MAGNESIUM SULFATE 1 GRAM/100 mL PREMIX 1 GM/100 ML BAG IV PRN ×6 (14:14→20:30)
[2019-12-13] MEDS: NORCO 5/325 MG TAB PO PRN ×2 (15:15→21:12)
[2019-12-13] MEDS: RESTORIL CAP 30 MG PO SCH (21:14)
--- NOTE | 2019-12-13 22:27 | PCM.PROG ---
Progress Note - Progress Note for Day of Date of Exam: 12/12/19 - Subjective Subjective: IS A 68 YEAR OLD PATIENT OF . SHE IS BEING TREATED FOR COPD WITH ACUTE BRONCHITIS, RHABDOMYOLYSIS, HYPONATREMIA, AND DEHYDRATION. TODAY, SHE IS ALERT AND ORIENTED, LYING IN BED ON MORNING ORUNDS. SHE CONTINUES WITH COMPLAINTS OF SHORTNESS OF BREATH, COUGH, AND GENERALIZED WEAKNESS. ON EXAMINATION, HEART IS REGULAR IN RATE AND RHYTHM. BILATERAL LUNGS ARE NOTED WITH WHEEZING AND RHONCHI THROUGHOUT. ABDOMEN IS ROUND, SOFT, AND NON- TENDER WITH NORMAL BOWEL SOUNDS NOTED IN ALL QUADRANTS. HER VITALS THIS MORNING ARE: 98.0-89-18-98%-119/60. LABS WERE OBTAINED. ABNORMAL LAB VALUES INCLUDE THE FOLLOWING: WBC 14.4, RBC 3.07, HGB 9.5, HCT 28.0, SODIUM 129, CHLORIDE 91, GLUCO SE 104, CALCIUM 6.1, AST 58, TOTAL PROTEIN 6.0, ALBUMIN 2.6. SPUTUM CULTURES ARE PENDING. A CHEST XRAY WAS OBTAINED TODAY AND REVEALED: Chronic interstitial lung changes and COPD without acute airspace disease or CHF. Small hiatal hernia. SHE IS CURRENTLY RECEIVING NS WITH 20MEQ KCL AT 50ML/HR, DOXYCYCLINE 100MG IV Q12H, LEVAQUIN 500MG IV DAILY, RESPIRATORY TX, THE POTASSIUM AND MAGNESIUM PROTOCOLS, AND HOME MEDICATIOSN WERE RESUMED. TODAY, WE WILL INCREASE HER IV FLUIDS TO 100ML/HR. OTHERWISE, WE WILL FOLLOW UP WITH AM LABS AND CONTINUE TO MONITOR. - Past Medical Family Social History Past Med/Fam/Surg Hx: No changes since H&P Allergies: Allergies amoxicillin [From Augmentin] Allergy (Verified 12/08/19 16:11) clavulanic acid [From Augmentin] Allergy (Verified 12/08/19 16:11) - Review of Systems ROS: No change since H&P - Vital Signs and I&O's Vital Signs: Temperature 97.9 F Pulse Rate [Right Brachial] 83 Pulse Rate [Left Radial] 102 Pulse Rate 75 Respiratory Rate 18 Blood Pressure [Left Arm] 111/65 Blood Pressure [Right Arm] 131/71 Blood Pressure 127/63 O2 Sat by Pulse Oximetry 98 Intake and Output: Intake & Output 12/11/19 12/12/19 12/13/19 12/14/19 11:59 11:59 11:59 11:59 Intake Total 1999 / 2728 3420 / 3420 720 / 720 Balance 1999 3420 / 3420 720 / 720 - Physical Exam Oriented: Normal Eyes: Normal Ear: Normal Nose: Discharge Throat: Red, Dry Respiratory: Generalized, Wheezes, Rhonchi Cardiovascular: Normal. negative: Edema : Normal Auscultation: Bowel Sounds: Normal Palpation: Normal Tenderness: Normal Skin: Decreased Turgur Musculoskeletal: Back:Thoracic, Back:Lumbar Psychiatric: Anxiety Affect: Anxious Speech Pattern: Clear, Appropriate - Laboratory and Diagnostics Result Diagrams: 12/13/19 04:34 12/13/19 04:34 Labs: 12/10/19 16:56 Sputum - Expectorated Sputum Sputum Culture - Final 12/10/19 16:56 Sputum - Expectorated Sputum - Final Laboratory WBC 13.1 X10^3/uL (3.6-10.0) H 12/13/19 04:34 RBC 2.70 X10^6/uL (3.5-5.4) L 12/13/19 04:34 Hgb 8.6 g/dL (12.0-16.0) L 12/13/19 04:34 Hct 24.6 % (36.0-47.0) L 12/13/19 04:34 MCV 91.4 fL (80.0-100.0) 12/13/19 04:34 MCH 32.0 pg (27.0-34.0) 12/13/19 04:34 MCHC 35.0 g/dL (33.0-35.0) 12/13/19 04:34 RDW 14.9 % (11.6-16.5) 12/13/19 04:34 Plt Count 290 X10^3/uL (150.0-450.0) 12/13/19 04:34 Plt Count Comment Increased (ADEQUATE) A 12/11/19 05:20 MPV 6.8 fL (7.4-11.0) L 12/13/19 04:34 Neut % (Auto) 77.7 % (42.0-75.0) H 12/13/19 04:34 Lymph % (Auto) 13.6 % (21.0-51.0) L 12/13/19 04:34 [place] % (Auto) 7.2 % (0.0-13.0) 12/13/19 04:34 Eos % (Auto) 1.4 % (0.9-2.9) 12/13/19 04:34 Baso % (Auto) 0.1 % (0.2-1.0) L 12/13/19 04:34 Neut # (Auto) 10.2 x10^3/uL (2.2-4.8) H 12/13/19 04:34 Lymph # (Auto) 1.8 X10^3/uL (1.3-2.9) 12/13/19 04:34 [place] # (Auto) 0.9 x10^3/uL (0.3-0.8) H 12/13/19 04:34 Eos # (Auto) 0.2 x10^3/uL (0.0-0.2) 12/13/19 04:34 Baso # (Auto) 0.0 X10^3/uL (0.0-0.1) 12/13/19 04:34 Absolute Nucleated RBC 0.0 /100WBC 12/13/19 04:34 Total Counted 100 12/11/19 05:20 Neutrophils % (Manual) 75 % (39-76) 12/11/19 05:20 Band Neutrophils % 3 % (0-10) 12/11/19 05:20 Lymphocytes % (Manual) 22 % (13-43) 12/11/19 05:20 Monocytes % (Manual) 2 % (4-9) L 12/10/19 11:30 Plt Morphology Comment Normal (NORMAL) 12/11/19 05:20 RBC Morphology Normal (NORMAL) 12/11/19 05:20 PT 13.2 SECONDS (11.8-14.3) 12/10/19 11:30 INR Target Range - 12/10/19 11:30 INR 1.04 (0.8-1.3) 12/10/19 11:30 Sample Site Rra 12/09/19 13:50 ABG pH 7.420 (7.35-7.45) 12/09/19 13:50 ABG pCO2 51.0 mmHg (35.0-45.0) H* 12/09/19 13:50 ABG pO2 52.0 mmHg (80.0-100.0) L 12/09/19 13:50 ABG HCO3 33.1 mmol/L (22-26) H* 12/09/19 13:50 ABG O2 Saturation 87.0 % (90-100) L 12/09/19 13:50 ABG Base Excess 7.3 mmol/L (-2.0-2.0) H 12/09/19 13:50 Luis Test Pos 12/09/19 13:50 A-a Gradient 34.0 mmHg 12/09/19 13:50 FiO2 21.0 12/09/19 13:50 Blood Gas Comments Pt toll well eb 12/09/19 13:50 Sodium 130 mmol/L (136-145) L 12/13/19 04:34 Corrected Sodium TNP 12/13/19 04:34 Potassium 3.5 mmol/L (3.5-5.1) 12/13/19 04:34 Chloride 91 mmol/L (98-107) L 12/13/19 04:34 Carbon Dioxide 33.0 mmol/L (21-32) H 12/13/19 04:34 BUN 8 mg/dL (7-18) 12/13/19 04:34 Creatinine 0.76 mg/dL (0.55-1.02) 12/13/19 04:34 Est GFR (MDRD) Af Amer > 60 (>60) 12/13/19 04:34 Est GFR (MDRD) Non-Af > 60 (>60) 12/13/19 04:34 Glucose 88 mg/dL (65-99) 12/13/19 04:34 Calcium 4.4 mg/dL (8.5-10.1) L* 12/13/19 04:34 Corrected Calcium 5.8 mg/dL (8.5-10.1) L 12/13/19 04:34 Magnesium 1.1 mg/dL (1.7-2.9) L 12/13/19 04:34 Total Bilirubin 0.50 mg/dL (0.2-1.0) 12/13/19 04:34 AST 49 Units/L (15-37) H 12/13/19 04:34 ALT 36 Units/L (12-78) 12/13/19 04:34 Alkaline Phosphatase 64 Units/L (46-116) 12/13/19 04:34 Creatine Kinase > 1000 Units/L (26-192) H 12/13/19 04:34 CK-MB (CK-2) 3.9 ng/mL (0-4.0) 12/13/19 04:34 CK/CKMB % Calc 0.0 % (<4) 12/13/19 04:34 Troponin I < 0.02 ng/mL (0-1.5) 12/13/19 04:34 Total Protein 5.5 g/dL (6.4-8.2) L 12/13/19 04:34 Albumin 2.3 g/dL (3.4-5.0) L 12/13/19 04:34 Globulin 3.2 g/dL (2.5-4.5) 12/13/19 04:34 Albumin/Globulin Ratio 0.7 Ratio (1.1-2.1) L 12/13/19 04:34 Specimen Type Clean catch urine 12/08/19 23:21 Urine Color Dark yellow (YELLOW) 12/08/19 23: Urine Appearance Clear (CLEAR) 12/08/19 23: Urine pH 6.0 (5.0 - 8.0) 12/08/19 23:21 Ur Specific [place] 1.015 (1.000-1.030) 12/08/19 23: Urine Protein 2+ (NEGATIVE) 12/08/19 23: Urine Glucose (UA) Negative (NEGATIVE) 12/08/19 23: Urine Ketones Negative (NEGATIVE) 12/08/19 23: Urine Occult Blood Negative (NEGATIVE) 12/08/19 23: Urine Nitrite Negative (NEGATIVE) 12/08/19 23: Urine Bilirubin Negative (NEGATIVE) 12/08/19 23: Urine Urobilinogen 1+ (NORMAL) 12/08/19 23: Ur Leukocyte Esterase Negative (NEGATIVE) 12/08/19 23: Urine RBC None seen /HPF (0-3) 12/08/19 23: Urine WBC 3-5 /HPF (0-5) 12/08/19 23:21 Ur Squamous Epith Cells Moderate /HPF (NEGATIVE) 12/08/19 23:21 Amorphous Sediment 1+ /HPF (NEGATIVE) 12/08/19 23: Urine Bacteria Trace /HPF (NEGATIVE) 12/08/19 23:21 Urine Mucus Few /HPF (NEGATIVE) 12/08/19 23:21 Ur Culture Indicated? No/not indicated 12/08/19 23:21 Influenza Type A (PCR) Negative (NEGATIVE) 12/08/19 16:30 Influenza Type B (PCR) Negative (NEGATIVE) 12/08/19 16:30 S. pyogenes (TEM-PCR) Not detected (NOT DETECT) 12/08/19 16:30 - Plan (1) Acute bronchitis with COPD Status: Acute Plan: SPUTUM AND BLOOD CULTURES ORDERED ON ADMISSION. IV ANTIBIOTICS, GENTLE IV HYDRATION, ENCOURAGE ORAL HYDRATION. BP MONITORING, CARDIAC MONITORING, SERIAL CE. STRICT I &OS (2) Hyponatremia Status: Acute Plan: CONTINUE IV FLUIDS (3) Hypokalemia Status: Acute Plan: REPLACEMENT PER PROTOCOL, CONTINUE TO MONITOR (4) Rhabdomyolysis Status: Acute Qualifiers: Rhabdomyolysis type: non-traumatic Qualified Code(s): M62.82 - Rhabdomyolysis Plan: IV FLUIDS, CONTINUE TO MONITOR (5) Hypertension Status: Chronic Qualifiers: Hypertension type: essential hypertension Qualified Code(s): I10 - Essential (primary) hypertension
--- NOTE | 2019-12-13 22:30 | PCM.PROG ---
Progress Note - Progress Note for Day of Date of Exam: 12/13/19 - Subjective Subjective: IS A 68 YEAR OLD PATIENT OF . SHE IS BEING TREATED FOR COPD WITH ACUTE BRONCHITIS, RHABDOMYOLYSIS, HYPONATREMIA, AND DEHYDRATION. TODAY, SHE IS ALERT AND ORIENTED, LYING IN BED ON MORNING ORUNDS. SHE CONTINUES WITH COMPLAINTS OF SHORTNESS OF BREATH, COUGH, AND GENERALIZED WEAKNESS. ON EXAMINATION, HEART IS REGULAR IN RATE AND RHYTHM. BILATERAL LUNGS ARE NOTED WITH WHEEZING AND RHONCHI THROUGHOUT. ABDOMEN IS ROUND, SOFT, AND NON- TENDER WITH NORMAL BOWEL SOUNDS NOTED IN ALL QUADRANTS. HER VITALS THIS MORNING ARE: 98.4-84-18-96%-118/56. LABS WERE OBTAINED. ABNORMAL LAB VALUES INCLUDE THE FOLLOWING: WBC 13.1, RBC 2.70, HGB 8.6, HCT 24.6, SODIUM 130, CHLORIDE 91, CARBO N DIOXIDE 33.0, CALCIUM 4.4, MAGNESIUM 1.1, AST 49, CREATINE KINASE >1000, TOTAL PROTEIN 5.5, ALBUMIN 2.3. SPUTUM CULTURES ARE PENDING. A CHEST XRAY WAS OBTAINED TODAY AND REVEALED: COPD with patchy opacity within the right lung base consistent with a developed infiltrate/pneumonia. Radiographic follow-up in 4-6 weeks is recommended to ensure resolution. Small hiatal hernia. SHE IS CURRENTLY RECEIVING NS WITH 20MEQ KCL AT 50ML/HR, DOXYCYCLINE 100MG IV Q12H, LEVAQUIN 500MG IV DAILY, RESPIRATORY TX, THE POTASSIUM AND MAGNESIUM PROTOCOLS, AND HOME MEDICATIONS WERE RESUMED. WE WILL CONTINUE WITH CURRENT PLAN OF CARE TODAY. OTHERWISE, WE WILL FOLLOW UP WITH AM LABS AND CONTINUE TO MONITOR. - Past Medical Family Social History Past Med/Fam/Surg Hx: No changes since H&P Allergies: Allergies amoxicillin [From Augmentin] Allergy (Verified 12/08/19 16:11) clavulanic acid [From Augmentin] Allergy (Verified 12/08/19 16:11) - Review of Systems ROS: No change since H&P - Vital Signs and I&O's Vital Signs: Temperature 97.9 F Pulse Rate [Right Brachial] 83 Pulse Rate [Left Radial] 102 Pulse Rate 75 Respiratory Rate 18 Blood Pressure [Left Arm] 111/65 Blood Pressure [Right Arm] 131/71 Blood Pressure 127/63 O2 Sat by Pulse Oximetry 98 Intake and Output: Intake & Output 12/11/19 12/12/19 12/13/19 12/14/19 11:59 11:59 11:59 11:59 Intake Total 1999 / 2728 3420 / 3420 720 / 720 Balance 1999 3420 / 3420 720 / 720 - Physical Exam Oriented: Normal Eyes: Normal Ear: Normal Nose: Discharge Throat: Red, Dry Respiratory: Generalized, Wheezes, Rhonchi Cardiovascular: Normal. negative: Edema : Normal Auscultation: Bowel Sounds: Normal Tenderness: Normal Skin: Decreased Turgur Musculoskeletal: Back:Thoracic, Back:Lumbar Psychiatric: Anxiety Affect: Anxious Speech Pattern: Clear, Appropriate - Laboratory and Diagnostics Result Diagrams: 12/13/19 04:34 12/13/19 04:34 Labs: 12/10/19 16:56 Sputum - Expectorated Sputum Sputum Culture - Final 12/10/19 16:56 Sputum - Expectorated Sputum - Final Laboratory WBC 13.1 X10^3/uL (3.6-10.0) H 12/13/19 04:34 RBC 2.70 X10^6/uL (3.5-5.4) L 12/13/19 04:34 Hgb 8.6 g/dL (12.0-16.0) L 12/13/19 04:34 Hct 24.6 % (36.0-47.0) L 12/13/19 04:34 MCV 91.4 fL (80.0-100.0) 12/13/19 04:34 MCH 32.0 pg (27.0-34.0) 12/13/19 04:34 MCHC 35.0 g/dL (33.0-35.0) 12/13/19 04:34 RDW 14.9 % (11.6-16.5) 12/13/19 04:34 Plt Count 290 X10^3/uL (150.0-450.0) 12/13/19 04:34 Plt Count Comment Increased (ADEQUATE) A 12/11/19 05:20 MPV 6.8 fL (7.4-11.0) L 12/13/19 04:34 Neut % (Auto) 77.7 % (42.0-75.0) H 12/13/19 04:34 Lymph % (Auto) 13.6 % (21.0-51.0) L 12/13/19 04:34 [place] % (Auto) 7.2 % (0.0-13.0) 12/13/19 04:34 Eos % (Auto) 1.4 % (0.9-2.9) 12/13/19 04:34 Baso % (Auto) 0.1 % (0.2-1.0) L 12/13/19 04:34 Neut # (Auto) 10.2 x10^3/uL (2.2-4.8) H 12/13/19 04:34 Lymph # (Auto) 1.8 X10^3/uL (1.3-2.9) 12/13/19 04:34 [place] # (Auto) 0.9 x10^3/uL (0.3-0.8) H 12/13/19 04:34 Eos # (Auto) 0.2 x10^3/uL (0.0-0.2) 12/13/19 04:34 Baso # (Auto) 0.0 X10^3/uL (0.0-0.1) 12/13/19 04:34 Absolute Nucleated RBC 0.0 /100WBC 12/13/19 04:34 Total Counted 100 12/11/19 05:20 Neutrophils % (Manual) 75 % (39-76) 12/11/19 05:20 Band Neutrophils % 3 % (0-10) 12/11/19 05:20 Lymphocytes % (Manual) 22 % (13-43) 12/11/19 05:20 Monocytes % (Manual) 2 % (4-9) L 12/10/19 11:30 Plt Morphology Comment Normal (NORMAL) 12/11/19 05:20 RBC Morphology Normal (NORMAL) 12/11/19 05:20 PT 13.2 SECONDS (11.8-14.3) 12/10/19 11:30 INR Target Range - 12/10/19 11:30 INR 1.04 (0.8-1.3) 12/10/19 11:30 Sample Site Rra 12/09/19 13:50 ABG pH 7.420 (7.35-7.45) 12/09/19 13:50 ABG pCO2 51.0 mmHg (35.0-45.0) H* 12/09/19 13:50 ABG pO2 52.0 mmHg (80.0-100.0) L 12/09/19 13:50 ABG HCO3 33.1 mmol/L (22-26) H* 12/09/19 13:50 ABG O2 Saturation 87.0 % (90-100) L 12/09/19 13:50 ABG Base Excess 7.3 mmol/L (-2.0-2.0) H 12/09/19 13:50 Luis Test Pos 12/09/19 13:50 A-a Gradient 34.0 mmHg 12/09/19 13:50 FiO2 21.0 12/09/19 13:50 Blood Gas Comments Pt toll well eb 12/09/19 13:50 Sodium 130 mmol/L (136-145) L 12/13/19 04:34 Corrected Sodium TNP 12/13/19 04:34 Potassium 3.5 mmol/L (3.5-5.1) 12/13/19 04:34 Chloride 91 mmol/L (98-107) L 12/13/19 04:34 Carbon Dioxide 33.0 mmol/L (21-32) H 12/13/19 04:34 BUN 8 mg/dL (7-18) 12/13/19 04:34 Creatinine 0.76 mg/dL (0.55-1.02) 12/13/19 04:34 Est GFR (MDRD) Af Amer > 60 (>60) 12/13/19 04:34 Est GFR (MDRD) Non-Af > 60 (>60) 12/13/19 04:34 Glucose 88 mg/dL (65-99) 12/13/19 04:34 Calcium 4.4 mg/dL (8.5-10.1) L* 12/13/19 04:34 Corrected Calcium 5.8 mg/dL (8.5-10.1) L 12/13/19 04:34 Magnesium 1.1 mg/dL (1.7-2.9) L 12/13/19 04:34 Total Bilirubin 0.50 mg/dL (0.2-1.0) 12/13/19 04:34 AST 49 Units/L (15-37) H 12/13/19 04:34 ALT 36 Units/L (12-78) 12/13/19 04:34 Alkaline Phosphatase 64 Units/L (46-116) 12/13/19 04:34 Creatine Kinase > 1000 Units/L (26-192) H 12/13/19 04:34 CK-MB (CK-2) 3.9 ng/mL (0-4.0) 12/13/19 04:34 CK/CKMB % Calc 0.0 % (<4) 12/13/19 04:34 Troponin I < 0.02 ng/mL (0-1.5) 12/13/19 04:34 Total Protein 5.5 g/dL (6.4-8.2) L 12/13/19 04:34 Albumin 2.3 g/dL (3.4-5.0) L 12/13/19 04:34 Globulin 3.2 g/dL (2.5-4.5) 12/13/19 04:34 Albumin/Globulin Ratio 0.7 Ratio (1.1-2.1) L 12/13/19 04:34 Specimen Type Clean catch urine 12/08/19 23:21 Urine Color Dark yellow (YELLOW) 12/08/19 23: Urine Appearance Clear (CLEAR) 12/08/19 23: Urine pH 6.0 (5.0 - 8.0) 12/08/19 23: Ur Specific [place] 1.015 (1.000-1.030) 12/08/19 23:21 Urine Protein 2+ (NEGATIVE) 12/08/19 23:21 Urine Glucose (UA) Negative (NEGATIVE) 12/08/19 23: Urine Ketones Negative (NEGATIVE) 12/08/19 23: Urine Occult Blood Negative (NEGATIVE) 12/08/19 23: Urine Nitrite Negative (NEGATIVE) 12/08/19 23: Urine Bilirubin Negative (NEGATIVE) 12/08/19 23: Urine Urobilinogen 1+ (NORMAL) 12/08/19 23: Ur Leukocyte Esterase Negative (NEGATIVE) 12/08/19 23: Urine RBC None seen /HPF (0-3) 12/08/19 23:21 Urine WBC 3-5 /HPF (0-5) 12/08/19 23:21 Ur Squamous Epith Cells Moderate /HPF (NEGATIVE) 12/08/19 23: Amorphous Sediment 1+ /HPF (NEGATIVE) 01/14/20 23:21 Urine Bacteria Trace /HPF (NEGATIVE) 12/08/19 23:21 Urine Mucus Few /HPF (NEGATIVE) 12/08/19 23:21 Ur Culture Indicated? No/not indicated 12/08/19 23:21 Influenza Type A (PCR) Negative (NEGATIVE) 12/08/19 16:30 Influenza Type B (PCR) Negative (NEGATIVE) 12/08/19 16:30 S. pyogenes (TEM-PCR) Not detected (NOT DETECT) 12/08/19 16:30 - Plan (1) Acute bronchitis with COPD Status: Acute Plan: SPUTUM AND BLOOD CULTURES ORDERED ON ADMISSION. IV ANTIBIOTICS, GENTLE IV HYDRATION, ENCOURAGE ORAL HYDRATION. BP MONITORING, CARDIAC MONITORING, SERIAL CE. STRICT I &OS (2) Hyponatremia Status: Acute Plan: CONTINUE IV FLUIDS (3) Hypokalemia Status: Acute Plan: REPLACEMENT PER PROTOCOL, CONTINUE TO MONITOR (4) Rhabdomyolysis Status: Acute Qualifiers: Rhabdomyolysis type: non-traumatic Qualified Code(s): M62.82 - Rhabdomyolysis Plan: IV FLUIDS, CONTINUE TO MONITOR (5) Hypertension Status: Chronic Qualifiers: Hypertension type: essential hypertension Qualified Code(s): I10 - Esse ntial (primary) hypertension
[2019-12-13] MEDS ORDERED: MORPHINE SULFATE INJ 2 MG INJ IVP ONE (23:28)
[2019-12-14] MEDS: NS + KCL 20 MEQ/L 1,000 ML IV SCH ×5 (00:13→15:58)
[2019-12-14] MEDS: DUONEB 0.5 MG/3 MG (3 mL) NEB SCH ×6 (00:45→20:43)
[2019-12-14 05:44] LABS: BASOPHILS % (AUTO) 0.1 % (0.2-1.0); EOSINOPHILS # (AUTO) 0.1 x10^3/uL (0.0-0.2); EOSINOPHILS % (AUTO) 0.6 % (0.9-2.9); HEMOGLOBIN 8.1 g/dL (12.0-16.0); LYMPHOCYTES % (AUTO) 5.7 % (21.0-51.0); MEAN CORPUSCULAR HEMOGLOBIN 32.1 pg (27.0-34.0); MEAN CORPUSCULAR VOLUME 91.7 fL (80.0-100.0); MONOCYTES # (AUTO) 0.9 x10^3/uL (0.3-0.8); MONOCYTES % (AUTO) 5.4 % (0.0-13.0); NEUTROPHILS # (AUTO) 14.8 x10^3/uL (2.2-4.8); NEUTROPHILS % (AUTO) 88.2 % (42.0-75.0); PLATELET COUNT 299 X10^3/uL (150.0-450.0); RED BLOOD COUNT 2.51 X10^6/uL (3.5-5.4); RED CELL DISTRIBUTION WIDTH 15.1 % (11.6-16.5); WHITE BLOOD COUNT 16.8 X10^3/uL (3.6-10.0)
[2019-12-14 06:03] LABS: ALANINE AMINOTRANSFERASE 31 Units/L (12-78); ALBUMIN 2.2 g/dL (3.4-5.0); ALKALINE PHOSPHATASE 62 Units/L (46-116); ASPARTATE AMINO TRANSFERASE 42 Units/L (15-37); BLOOD UREA NITROGEN 6 mg/dL (7-18); CARBON DIOXIDE 31.3 mmol/L (21-32); CHLORIDE 89 mmol/L (98-107); CREATINE KINASE MB 3.1 ng/mL (0-4.0); SODIUM 127 mmol/L (136-145); TOTAL PROTEIN 5.4 g/dL (6.4-8.2); TROPONIN I < 0.02 ng/mL (0-1.5); eGFR NON BLACK RACES > 60 (>60)
[2019-12-14] MEDS: TUMS PO SCH ×3 (06:11→21:00)
[2019-12-14 06:13] LABS: CKMB % 0.1 % (<4)
[2019-12-14 06:14] LABS: CREATINE KINASE 2253 Units/L (26-192)
[2019-12-14] MEDS ORDERED: COLACE CAP 100 MG PO SCH (06:30)
[2019-12-14 07:33] LABS: CKMB % 0.1 % (<4); CREATINE KINASE 2720 Units/L (26-192)
--- NOTE | 2019-12-14 07:44 | RAD ---
HISTORYSOBSTUDYPortable AP [id number] normal heart size. The previously described right basal in filtrate is less well demonstrated on this follow-up study. There are prominent linear markings at th e right lower lung. No discrete consolidation is noted. The pleural spaces are clear. No vascular dis tention or pneumothorax.IMPRESSIONNonspecific increase in pulmonary markings right base; a definite p neumonia is not identified at this time.Electronically signed by: CAMERON BARRIENTOS (Dec 14, 2019 07:42: 52)
[2019-12-14] MEDS: PULMICORT NEB TX 0.5 MG NEB SCH ×2 (08:17→20:43)
[2019-12-14] MEDS: VIBRAMYCIN 100 MG in D5W 250 ML IV 250 ML IV SCH ×2 (10:03→21:00)
[2019-12-14] MEDS: LEVAQUIN PREMIX IV 500 MG 500 MG/100 ML BAG IV SCH (10:06)
[2019-12-14] MEDS: LOVENOX INJ 40 MG SYR SC SCH (10:07)
[2019-12-14] MEDS: PROzac PO SCH ×2 (10:07→21:00)
[2019-12-14] MEDS: PROTONIX TAB 40 MG PO SCH (10:08)
[2019-12-14] MEDS: CLARITIN PO SCH (10:08)
[2019-12-14] MEDS: MIRALAX POWDER (1 DOSE 17 G) PO SCH ×2 (10:09→10:15)
[2019-12-14] MEDS: ROCALTROL PO SCH (10:09)
[2019-12-14] MEDS: NORCO 5/325 MG TAB PO PRN ×2 (10:30→21:00)
--- NOTE | 2019-12-14 16:54 | PCM.PROG ---
Progress Note - Progress Note for Day of Date of Exam: 12/14/19 - Subjective Subjective: IS A 68 YEAR OLD PATIENT OF . SHE IS BEING TREATED FOR COPD WITH ACUTE BRONCHITIS, RHABDOMYOLYSIS, HYPONATREMIA, AND DEHYDRATION. WBC 16.8, NA 127, AND CREATNINE KINASE 2253 TODAY, SHE IS ALERT AND ORIENTED, LYING IN BED ON MORNING ORUNDS. SHE CONTINUES WITH COMPLAINTS OF SHORTNESS OF BREATH, COUGH, AND GENERALIZED WEAKNESS. ON EXAMINATION, HEART IS REGULAR IN RATE AND RHYTHM. BILATERAL LUNGS ARE NOTED WITH WHEEZING AND RHONCHI THROUGHOUT. ABDOMEN IS ROUND, SOFT, AND MILDLY TENDER TO LOWER ABDOMEN WITH SORE MUSCLES. PT REPORTS [place], PULLING BURNING PAIN YESTERDAY EVENING RELIEVED WITH MORPHINE. PT RELATES TO PULLED MUSCLES FROM COUGHING SO MUCH. SHE IS CURRENTLY RECEIVING NS WITH 20MEQ KCL AT 50ML/HR, DOXYCYCLINE 100MG IV Q12H, LEVAQUIN 500MG IV DAILY, RESPIRATORY TX, THE POTASSIUM AND MAGNESIUM PROTOCOLS, AND HOME MEDICATIONS WERE RESUMED. WE WILL CONTINUE WITH CURRENT PLAN OF CARE TODAY. OTHERWISE, WE WILL FOLLOW UP WITH AM LABS AND CONTINUE TO MONITOR. - Past Medical Family Social History Past Med/Fam/Surg Hx: No changes since H&P Allergies: Allergies amoxicillin [From Augmentin] Allergy (Verified 12/08/19 16:11) clavulanic acid [From Augmentin] Allergy (Verified 12/08/19 16:11) - Review of Systems ROS: No change since H&P - Vital Signs and I&O's Vital Signs: Temperature 98.5 F Pulse Rate [Right Brachial] 82 Pulse Rate [Left Radial] 102 Pulse Rate 50 Respiratory Rate 18 Blood Pressure [Left Arm] 111/65 Blood Pressure [Right Arm] 96/51 Blood Pressure 127/63 O2 Sat by Pulse Oximetry 100 Intake and Output: Intake & Output 12/12/19 12/13/19 12/14/19 12/15/19 11:59 11:59 11:59 11:59 Intake Total 2729 / 2729 3420 / 3420 2640 / 2640 1320 / 1320 Balance 2729 / 2729 3420 / 3420 2640 / 2640 1320 / 1320 - Physical Exam Oriented: Normal Eyes: Normal Ear: Normal Nose: Discharge Throat: Red, Dry Respiratory: Generalized, Wheezes, Rhonchi Cardiovascular: Normal. negative: Edema : Normal Auscultation: Bowel Sounds: Normal Tenderness: Normal Skin: Decreased Turgur Musculoskeletal: Back:Thoracic, Back:Lumbar Psychiatric: Anxiety Affect: Anxious Speech Pattern: Clear, Appropriate - Laboratory and Diagnostics Result Diagrams: 12/14/19 04:30 12/14/19 04:30 Labs: 12/10/19 16:56 Sputum - Expectorated Sputum Sputum Culture - Final 12/10/19 16:56 Sputum - Expectorated Sputum - Final Laboratory WBC 16.8 X10^3/uL (3.6-10.0) H 12/14/19 04:30 RBC 2.51 X10^6/uL (3.5-5.4) L 12/14/19 04:30 Hgb 8.1 g/dL (12.0-16.0) L 12/14/19 04:30 Hct 23.0 % (36.0-47.0) L 12/14/19 04:30 MCV 91.7 fL (80.0-100.0) 12/14/19 04:30 MCH 32.1 pg (27.0-34.0) 12/14/19 04:30 MCHC 35.0 g/dL (33.0-35.0) 12/14/19 04:30 RDW 15.1 % (11.6-16.5) 12/14/19 04:30 Plt Count 299 X10^3/uL (150.0-450.0) 12/14/19 04:30 Plt Count Comment Increased (ADEQUATE) A 12/11/19 05:20 MPV 7.0 fL (7.4-11.0) L 12/14/19 04:30 Neut % (Auto) 88.2 % (42.0-75.0) H 12/14/19 04:30 Lymph % (Auto) 5.7 % (21.0-51.0) L 12/14/19 04:30 [place] % (Auto) 5.4 % (0.0-13.0) 12/14/19 04:30 Eos % (Auto) 0.6 % (0.9-2.9) L 12/14/19 04:30 Baso % (Auto) 0.1 % (0.2-1.0) L 12/14/19 04:30 Neut # (Auto) 14.8 x10^3/uL (2.2-4.8) H 12/14/19 04:30 Lymph # (Auto) 1.0 X10^3/uL (1.3-2.9) L 12/14/19 04:30 [place] # (Auto) 0.9 x10^3/uL (0.3-0.8) H 12/14/19 04:30 Eos # (Auto) 0.1 x10^3/uL (0.0-0.2) 12/14/19 04:30 Baso # (Auto) 0.0 X10^3/uL (0.0-0.1) 12/14/19 04:30 Absolute Nucleated RBC 0.0 /100WBC 12/14/19 04:30 Total Counted 100 12/11/19 05:20 Neutrophils % (Manual) 75 % (39-76) 12/11/19 05:20 Band Neutrophils % 3 % (0-10) 12/11/19 05:20 Lymphocytes % (Manual) 22 % (13-43) 12/11/19 05:20 Monocytes % (Manual) 2 % (4-9) L 12/10/19 11:30 Plt Morphology Comment Normal (NORMAL) 12/11/19 05:20 RBC Morphology Normal (NORMAL) 12/11/19 05:20 PT 13.2 SECONDS (11.8-14.3) 12/10/19 11:30 INR Target Range - 12/10/19 11:30 INR 1.04 (0.8-1.3) 12/10/19 11:30 Sample Site Rra 12/09/19 13:50 ABG pH 7.420 (7.35-7.45) 12/09/19 13:50 ABG pCO2 51.0 mmHg (35.0-45.0) H* 12/09/19 13:50 ABG pO2 52.0 mmHg (80.0-100.0) L 12/09/19 13:50 ABG HCO3 33.1 mmol/L (22-26) H* 12/09/19 13:50 ABG O2 Saturation 87.0 % (90-100) L 12/09/19 13:50 ABG Base Excess 7.3 mmol/L (-2.0-2.0) H 12/09/19 13:50 Luis Test Pos 12/09/19 13:50 A-a Gradient 34.0 mmHg 12/09/19 13:50 FiO2 21.0 12/09/19 13:50 Blood Gas Comments Pt toll well eb 12/09/19 13:50 Sodium 127 mmol/L (136-145) L 12/14/19 04:30 Corrected Sodium TNP 12/14/19 04:30 Potassium 4.3 mmol/L (3.5-5.1) 12/14/19 04:30 Chloride 89 mmol/L (98-107) L 12/14/19 04:30 Carbon Dioxide 31.3 mmol/L (21-32) 12/14/19 04:30 BUN 6 mg/dL (7-18) L 12/14/19 04:30 Creatinine 0.60 mg/dL (0.55-1.02) 12/14/19 04:30 Est GFR (MDRD) Af Amer > 60 (>60) 12/14/19 04:30 Est GFR (MDRD) Non-Af > 60 (>60) 12/14/19 04:30 Glucose 106 mg/dL (65-99) H 12/14/19 04:30 Calcium 4.3 mg/dL (8.5-10.1) L* 12/14/19 04:30 Corrected Calcium 5.7 mg/dL (8.5-10.1) L 12/14/19 04:30 Magnesium 1.8 mg/dL (1.7-2.9) 12/14/19 04:30 Total Bilirubin 0.60 mg/dL (0.2-1.0) 12/14/19 04:30 AST 42 Units/L (15-37) H 12/14/19 04:30 ALT 31 Units/L (12-78) 12/14/19 04:30 Alkaline Phosphatase 62 Units/L (46-116) 12/14/19 04:30 Creatine Kinase 2253 Units/L (26-192) H 12/14/19 04:30 CK-MB (CK-2) 3.1 ng/mL (0-4.0) 12/14/19 04:30 CK/CKMB % Calc 0.1 % (<4) 12/14/19 04:30 Troponin I < 0.02 ng/mL (0-1.5) 12/14/19 04:30 Total Protein 5.4 g/dL (6.4-8.2) L 12/14/19 04:30 Albumin 2.2 g/dL (3.4-5.0) L 12/14/19 04:30 Globulin 3.2 g/dL (2.5-4.5) 12/14/19 04:30 Albumin/Globulin Ratio 0.7 Ratio (1.1-2.1) L 12/14/19 04:30 Specimen Type Clean catch urine 12/08/19 23:21 Urine Color Dark yellow (YELLOW) 12/08/19 23: Urine Appearance Clear (CLEAR) 12/08/19 23: Urine pH 6.0 (5.0 - 8.0) 12/08/19 23:21 Ur Specific [place] 1.015 (1.000-1.030) 12/08/19 23:21 Urine Protein 2+ (NEGATIVE) 12/08/19 23: Urine Glucose (UA) Negative (NEGATIVE) 12/08/19 23: Urine Ketones Negative (NEGATIVE) 12/08/19 23:21 Urine Occult Blood Negative (NEGATIVE) 12/08/19 23: Urine Nitrite Negative (NEGATIVE) 12/08/19 23: Urine Bilirubin Negative (NEGATIVE) 12/08/19 23: Urine Urobilinogen 1+ (NORMAL) 12/08/19 23:21 Ur Leukocyte Esterase Negative (NEGATIVE) 12/08/19 23:21 Urine RBC None seen /HPF (0-3) 12/08/19 23: Urine WBC 3-5 /HPF (0-5) 12/08/19 23:21 Ur Squamous Epith Cells Moderate /HPF (NEGATIVE) 12/08/19 23:21 Amorphous Sediment 1+ /HPF (NEGATIVE) 12/08/19 23:21 Urine Bacteria Trace /HPF (NEGATIVE) 12/08/19 23: Urine Mucus Few /HPF (NEGATIVE) 12/08/19 23:21 Ur Culture Indicated? No/not indicated 12/08/19 23:21 Influenza Type A (PCR) Negative (NEGATIVE) 12/08/19 16:30 Influenza Type B (PCR) Negative (NEGATIVE) 12/08/19 16:30 S. pyogenes (TEM-PCR) Not detected (NOT DETECT) 12/08/19 16:30 - Plan (1) Acute bronchitis with COPD Status: Acute Plan: SPUTUM AND BLOOD CULTURES ORDERED ON ADMISSION. IV ANTIBIOTICS, GENTLE IV HYDRATION, ENCOURAGE ORAL HYDRATION. BP MONITORING, CARDIAC MONITORING, SERIAL CE CONTINUED. STRICT I &OS (2) Hyponatremia Status: Acute Plan: CONTINUE IV FLUIDS (3) Hypokalemia Status: Acute Plan: REPLACEMENT PER PROTOCOL, CONTINUE TO MONITOR (4) Hypertension Status: Chronic Qualifiers: Hypertension type: essential hypertension Qualified Code(s): I10 - Essential (primary) hypertension (5) Rhabdomyolysis Status: Acute Qualifiers: Rhabdomyolysis type: non-traumatic Qualified Code(s): M62.82 - Rhabdomyolysis Plan: IV FLUIDS, CONTINUE TO MONITOR (6) Pneumonia Status: Acute Plan: IV ATBX, RESP THERAPY. DUONEBS, SUPPLEMENTAL O2
[2019-12-14] MEDS: RESTORIL CAP 30 MG PO SCH (21:00)
[2019-12-15] MEDS: MAALOX or MYLANTA PO PRN (00:10)
[2019-12-15] MEDS: DUONEB 0.5 MG/3 MG (3 mL) NEB SCH ×6 (00:47→21:30)
[2019-12-15] MEDS: TUMS PO SCH ×3 (05:30→21:10)
[2019-12-15 06:46] LABS: BASOPHILS % (AUTO) 0.2 % (0.2-1.0); EOSINOPHILS # (AUTO) 0.2 x10^3/uL (0.0-0.2); EOSINOPHILS % (AUTO) 1.7 % (0.9-2.9); LYMPHOCYTES # (AUTO) 1.4 X10^3/uL (1.3-2.9); LYMPHOCYTES % (AUTO) 9.5 % (21.0-51.0); MEAN CORPUSCULAR HEMOGLOBIN 31.9 pg (27.0-34.0); MEAN CORPUSCULAR HGB CONC 34.8 g/dL (33.0-35.0); MEAN CORPUSCULAR VOLUME 91.7 fL (80.0-100.0); MEAN PLATELET VOLUME 7.1 fL (7.4-11.0); MONOCYTES # (AUTO) 1.3 x10^3/uL (0.3-0.8); MONOCYTES % (AUTO) 8.8 % (0.0-13.0); NEUTROPHILS # (AUTO) 11.6 x10^3/uL (2.2-4.8); NEUTROPHILS % (AUTO) 79.8 % (42.0-75.0); PLATELET COUNT 265 X10^3/uL (150.0-450.0); RED BLOOD COUNT 2.14 X10^6/uL (3.5-5.4); RED CELL DISTRIBUTION WIDTH 15.3 % (11.6-16.5); WHITE BLOOD COUNT 14.5 X10^3/uL (3.6-10.0)
[2019-12-15 06:47] LABS: ALANINE AMINOTRANSFERASE 27 Units/L (12-78); ALBUMIN 2.1 g/dL (3.4-5.0); ALKALINE PHOSPHATASE 61 Units/L (46-116); ASPARTATE AMINO TRANSFERASE 40 Units/L (15-37); BLOOD UREA NITROGEN 7 mg/dL (7-18); CHLORIDE 88 mmol/L (98-107); COR CA(FOR HYPOALB) 6.5 mg/dL (8.5-10.1); CREATININE 0.62 mg/dL (0.55-1.02); TOTAL PROTEIN 5.4 g/dL (6.4-8.2); eGFR NON BLACK RACES > 60 (>60)
[2019-12-15 06:58] LABS: HEMOGLOBIN 6.8 g/dL (12.0-16.0)
[2019-12-15 06:59] LABS: HEMATOCRIT 19.6 % (36.0-47.0)
[2019-12-15 07:13] LABS: SODIUM 124 mmol/L (136-145)
[2019-12-15 07:14] LABS: CALCIUM < 5.0 mg/dL (8.5-10.1)
[2019-12-15 07:21] LABS: CALCIUM < 5.0 mg/dL (8.5-10.1); COR CA(FOR HYPOALB) 6.4 mg/dL (8.5-10.1)
[2019-12-15 07:36] LABS: CALCIUM < 5.0 mg/dL (8.5-10.1); COR CA(FOR HYPOALB) 6.4 mg/dL (8.5-10.1)
[2019-12-15] MEDS: NORCO 5/325 MG TAB PO PRN ×2 (08:00→22:42)
[2019-12-15 09:17] LABS: HEMATOCRIT 19.2 % (36.0-47.0); HEMOGLOBIN 6.7 g/dL (12.0-16.0)
[2019-12-15] MEDS ORDERED: BENADRYL INJ 50 MG VIAL IVP PRN (09:25)
[2019-12-15] MEDS ORDERED: TYLENOL 325 MG TAB PO PRN (09:25)
[2019-12-15 09:28] LABS: ABG ALLEN TEST POS; ABG BASE EXCESS 4.4 mmol/L (-2.0-2.0); ABG HCO3 28.4 mmol/L (22-26)
[2019-12-15] MEDS: PULMICORT NEB TX 0.5 MG NEB SCH ×2 (09:32→21:30)
[2019-12-15] MEDS: LEVAQUIN PREMIX IV 500 MG 500 MG/100 ML BAG IV SCH (10:11)
[2019-12-15] MEDS: PROzac PO SCH ×2 (10:11→20:44)
[2019-12-15] MEDS: CLARITIN PO SCH (10:11)
[2019-12-15] MEDS: NS 1000 ML 1,000 ML IV SCH ×2 (10:12→23:44)
[2019-12-15] MEDS: ROCALTROL PO SCH (10:12)
[2019-12-15] MEDS: MIRALAX POWDER (1 DOSE 17 G) PO SCH (10:12)
[2019-12-15] MEDS: PROTONIX INJ 40 MG VIAL IVP SCH ×2 (10:35→20:43)
[2019-12-15] MEDS: VIBRAMYCIN 100 MG in D5W 250 ML IV 250 ML IV SCH ×2 (11:06→20:43)
[2019-12-15] MEDS: NS 500 ML IV 500 ML IV ONE ×2 (11:11→13:45)
[2019-12-15] MEDS ORDERED: NS 500 ML IV 500 ML IV ONE (13:18)
--- NOTE | 2019-12-15 14:49 | CT ---
CT CHEST, ABDOMEN AND PELVIS WITH CONTRASTCLINICAL INDICATION: ABD PAIN, LEFT SIDE BRUISING, LOW HEMOGLOBINPROCEDURE: Following administration of non-ionic IV contrast, postcontrast CT images were obtained through the chest abdomen and pelvis. Dose reduction techniques including Automated Exposure Control (AEC) and adjustment of mA and kV were utlized.COMPARISON: [December 10, 2019]FINDINGS:CT chest: The heart is normal in size . No pericardial effusion. Moderate to large hiatal hernia. Ingested debris within the esophagus. No suspicious mediastinal or axillary lymph nodes . No focal consolidations, pleural effusions or pneumothorax.Centrilobular nodularity can be seen within the bilateral lung bases as well as the dependent portions of the right upper lobe. More streaky airspace opacities can be seen in the right lower lobe which may be secondary to atelectasis versus small volume aspiration.Airways are patent . No suspicious pulmonary nodules or masses .CT Abdomen and pelvis : Liver and spleen are normal in size, enhancement characteristics and contour . No focal lesions . The portal vein is patent . No ductal dilitation.Questionable tiny gallstones without evidence of gallbladder inflammation.The pancreas is unremarkable . Adrenal glands are normal . Kidneys enhance symmetrically without nephrolithiasis or hydronephrosis .No bowel obstruction or inflammation . . Normal appendix. There is a large hematoma that appears to be contained within the muscle sheath of the oblique muscles on the left. This measures 13 x 13 x 6 cm. No active arterial bleed is identified however arterial phase images not obtained. There is a smaller component within the left rectus sheath itself measuring approximately 7 x 3 x 3 cm for example on series 2, image 69. no abnormal appearing mesenteric or retroperitoneal lymph nodes . No free fluid or fluid collections .Bladder is normal. Uterus not seen no pelvic adenopathy or fluid collections.No aggressive osseous lesions.IMPRESSION:1. Left abdominal wall hematomas as above. Correlate with any recent trauma or anticoagulation.2. Tree-in-bud and centrilobular nodularity with scarring consolidation and possibly the right lung base. This may represent aspiration or acute infectious process.3. Other chronic findings as above.Electronically signed by: RENATA PACK (Dec 15, 2019 14:47:29)
[2019-12-15 16:41] LABS: AMYLASE 48 Units/L (25-115); LIPASE 93 Units/L (73-393)
[2019-12-15] MEDS ORDERED: NS 250 ML IV 250 ML IV ONE (17:10)
[2019-12-15] MEDS: HEMOCYTE-PLUS PO SCH (18:20)
[2019-12-15] MEDS: COLACE CAP 100 MG PO SCH (20:43)
[2019-12-15] MEDS: RESTORIL CAP 30 MG PO SCH (20:44)
[2019-12-15] MEDS: ROBITUSSIN DM PO PRN (20:44)
[2019-12-15 21:48] LABS: HEMATOCRIT 25.4 % (36.0-47.0)
[2019-12-16] MEDS: DUONEB 0.5 MG/3 MG (3 mL) NEB SCH ×6 (00:59→21:15)
[2019-12-16] MEDS: TUMS PO SCH ×3 (05:33→22:10)
[2019-12-16 05:52] LABS: BASOPHILS % (AUTO) 0.1 % (0.2-1.0); EOSINOPHILS # (AUTO) 0.2 x10^3/uL (0.0-0.2); EOSINOPHILS % (AUTO) 1.7 % (0.9-2.9); HEMATOCRIT 23.9 % (36.0-47.0); HEMOGLOBIN 8.6 g/dL (12.0-16.0); LYMPHOCYTES # (AUTO) 1.3 X10^3/uL (1.3-2.9); LYMPHOCYTES % (AUTO) 11.9 % (21.0-51.0); MEAN CORPUSCULAR HEMOGLOBIN 32.8 pg (27.0-34.0); MEAN CORPUSCULAR VOLUME 91.2 fL (80.0-100.0); MEAN PLATELET VOLUME 7.1 fL (7.4-11.0); MONOCYTES # (AUTO) 1.1 x10^3/uL (0.3-0.8); MONOCYTES % (AUTO) 9.6 % (0.0-13.0); NEUTROPHILS # (AUTO) 8.6 x10^3/uL (2.2-4.8); NEUTROPHILS % (AUTO) 76.7 % (42.0-75.0); PLATELET COUNT 240 X10^3/uL (150.0-450.0); RED BLOOD COUNT 2.62 X10^6/uL (3.5-5.4); RED CELL DISTRIBUTION WIDTH 15.1 % (11.6-16.5); WHITE BLOOD COUNT 11.2 X10^3/uL (3.6-10.0)
[2019-12-16 06:06] LABS: ALANINE AMINOTRANSFERASE 27 Units/L (12-78); ALBUMIN 2.1 g/dL (3.4-5.0); ALKALINE PHOSPHATASE 61 Units/L (46-116); ASPARTATE AMINO TRANSFERASE 36 Units/L (15-37); BLOOD UREA NITROGEN 7 mg/dL (7-18); CARBON DIOXIDE 27.7 mmol/L (21-32); CHLORIDE 91 mmol/L (98-107); COR CA(FOR HYPOALB) 6.5 mg/dL (8.5-10.1); CREATININE 0.68 mg/dL (0.55-1.02); SODIUM 127 mmol/L (136-145); TOTAL PROTEIN 5.3 g/dL (6.4-8.2); eGFR NON BLACK RACES > 60 (>60)
[2019-12-16 06:16] LABS: CALCIUM < 5.0 mg/dL (8.5-10.1)
[2019-12-16] MEDS: LEVAQUIN PREMIX IV 500 MG 500 MG/100 ML BAG IV SCH (09:00)
[2019-12-16] MEDS: COLACE CAP 100 MG PO SCH (09:00)
[2019-12-16] MEDS: CLARITIN PO SCH (09:00)
[2019-12-16] MEDS: HEMOCYTE-PLUS PO SCH (09:00)
[2019-12-16] MEDS: ROCALTROL PO SCH (09:00)
[2019-12-16] MEDS: MIRALAX POWDER (1 DOSE 17 G) PO SCH (09:01)
[2019-12-16] MEDS: VIBRAMYCIN 100 MG in D5W 250 ML IV 250 ML IV SCH ×2 (09:01→21:15)
[2019-12-16] MEDS: PROTONIX INJ 40 MG VIAL IVP SCH ×2 (09:58→21:15)
[2019-12-16] MEDS: PULMICORT NEB TX 0.5 MG NEB SCH ×2 (10:06→21:15)
[2019-12-16 15:50] LABS: HEMOGLOBIN 8.6 g/dL (12.0-16.0)
[2019-12-16] MEDS: ROBITUSSIN DM PO PRN (17:36)
[2019-12-16] MEDS: NS 1000 ML 1,000 ML IV SCH (17:37)
[2019-12-16] MEDS ORDERED: COLACE CAP 100 MG PO PRN (19:41)
[2019-12-16] MEDS: RESTORIL CAP 30 MG PO SCH (21:15)
[2019-12-16] MEDS: PROzac PO SCH (21:15)
[2019-12-17] MEDS: DUONEB 0.5 MG/3 MG (3 mL) NEB SCH ×6 (00:59→20:10)
[2019-12-17 06:04] LABS: ALANINE AMINOTRANSFERASE 26 Units/L (12-78); ALBUMIN 2.1 g/dL (3.4-5.0); ALKALINE PHOSPHATASE 67 Units/L (46-116); ASPARTATE AMINO TRANSFERASE 38 Units/L (15-37); BLOOD UREA NITROGEN 4 mg/dL (7-18); CARBON DIOXIDE 29.6 mmol/L (21-32); CHLORIDE 92 mmol/L (98-107); COR CA(FOR HYPOALB) 6.5 mg/dL (8.5-10.1); CREATININE 0.59 mg/dL (0.55-1.02); SODIUM 130 mmol/L (136-145); TOTAL PROTEIN 5.2 g/dL (6.4-8.2); eGFR NON BLACK RACES > 60 (>60)
[2019-12-17 06:08] LABS: BASOPHILS % (AUTO) 0.3 % (0.2-1.0); EOSINOPHILS # (AUTO) 0.2 x10^3/uL (0.0-0.2); HEMOGLOBIN 8.2 g/dL (12.0-16.0); LYMPHOCYTES # (AUTO) 1.3 X10^3/uL (1.3-2.9); LYMPHOCYTES % (AUTO) 13.6 % (21.0-51.0); MEAN CORPUSCULAR HEMOGLOBIN 32.1 pg (27.0-34.0); MEAN CORPUSCULAR HGB CONC 35.4 g/dL (33.0-35.0); MEAN CORPUSCULAR VOLUME 90.7 fL (80.0-100.0); MEAN PLATELET VOLUME 6.6 fL (7.4-11.0); MONOCYTES # (AUTO) 0.9 x10^3/uL (0.3-0.8); MONOCYTES % (AUTO) 9.9 % (0.0-13.0); NEUTROPHILS # (AUTO) 6.9 x10^3/uL (2.2-4.8); NEUTROPHILS % (AUTO) 74.2 % (42.0-75.0); PLATELET COUNT 239 X10^3/uL (150.0-450.0); RED BLOOD COUNT 2.54 X10^6/uL (3.5-5.4); RED CELL DISTRIBUTION WIDTH 15.3 % (11.6-16.5); WHITE BLOOD COUNT 9.2 X10^3/uL (3.6-10.0)
[2019-12-17 06:11] LABS: CALCIUM < 5.0 mg/dL (8.5-10.1)
[2019-12-17] MEDS: ROBITUSSIN DM PO PRN (06:29)
[2019-12-17] MEDS: NS 1000 ML 1,000 ML IV SCH ×2 (06:29→16:40)
[2019-12-17] MEDS: TUMS PO SCH ×3 (06:43→21:30)
[2019-12-17] MEDS: ROBITUSSIN DM PO SCH ×4 (09:11→21:30)
[2019-12-17] MEDS: PROTONIX INJ 40 MG VIAL IVP SCH ×2 (09:11→20:30)
[2019-12-17] MEDS: COLACE CAP 100 MG PO SCH ×2 (09:12→21:35)
[2019-12-17] MEDS: HEMOCYTE-PLUS PO SCH (09:12)
[2019-12-17] MEDS: LEVAQUIN PREMIX IV 500 MG 500 MG/100 ML BAG IV SCH (09:12)
[2019-12-17] MEDS: CLARITIN PO SCH (09:12)
[2019-12-17] MEDS: MIRALAX POWDER (1 DOSE 17 G) PO SCH (09:12)
[2019-12-17] MEDS: K-DUR TAB 20 MEQ PO PRN (09:14)
[2019-12-17] MEDS: NORCO 5/325 MG TAB PO PRN (09:23)
[2019-12-17] MEDS: PULMICORT NEB TX 0.5 MG NEB SCH ×2 (09:52→20:10)
[2019-12-17] MEDS: ROCALTROL PO SCH (11:51)
[2019-12-17] MEDS: VIBRAMYCIN 100 MG in D5W 250 ML IV 250 ML IV SCH ×2 (11:51→21:30)
[2019-12-17] MEDS: PROzac PO SCH (21:30)
[2019-12-17] MEDS: RESTORIL CAP 30 MG PO SCH (21:30)
[2019-12-18] MEDS: DUONEB 0.5 MG/3 MG (3 mL) NEB SCH ×4 (01:37→12:15)
[2019-12-18] MEDS: ROBITUSSIN DM PO SCH ×3 (03:33→08:43)
[2019-12-18] MEDS: NORCO 5/325 MG TAB PO PRN (03:39)
[2019-12-18 05:45] LABS: BASOPHILS % (AUTO) 0.5 % (0.2-1.0); EOSINOPHILS # (AUTO) 0.2 x10^3/uL (0.0-0.2); EOSINOPHILS % (AUTO) 2.7 % (0.9-2.9); HEMATOCRIT 24.7 % (36.0-47.0); HEMOGLOBIN 8.7 g/dL (12.0-16.0); LYMPHOCYTES # (AUTO) 1.2 X10^3/uL (1.3-2.9); LYMPHOCYTES % (AUTO) 13.5 % (21.0-51.0); MEAN CORPUSCULAR HEMOGLOBIN 32.4 pg (27.0-34.0); MEAN CORPUSCULAR HGB CONC 35.3 g/dL (33.0-35.0); MEAN CORPUSCULAR VOLUME 91.9 fL (80.0-100.0); MEAN PLATELET VOLUME 6.6 fL (7.4-11.0); MONOCYTES # (AUTO) 0.9 x10^3/uL (0.3-0.8); MONOCYTES % (AUTO) 9.9 % (0.0-13.0); NEUTROPHILS # (AUTO) 6.7 x10^3/uL (2.2-4.8); NEUTROPHILS % (AUTO) 73.4 % (42.0-75.0); PLATELET COUNT 250 X10^3/uL (150.0-450.0); RED BLOOD COUNT 2.69 X10^6/uL (3.5-5.4); RED CELL DISTRIBUTION WIDTH 15.7 % (11.6-16.5); WHITE BLOOD COUNT 9.2 X10^3/uL (3.6-10.0)
[2019-12-18 06:14] LABS: ALANINE AMINOTRANSFERASE 28 Units/L (12-78); ALBUMIN 2.3 g/dL (3.4-5.0); ALKALINE PHOSPHATASE 67 Units/L (46-116); ASPARTATE AMINO TRANSFERASE 36 Units/L (15-37); BLOOD UREA NITROGEN 6 mg/dL (7-18); CHLORIDE 91 mmol/L (98-107); COR CA(FOR HYPOALB) 6.4 mg/dL (8.5-10.1); CREATININE 0.66 mg/dL (0.55-1.02); SODIUM 130 mmol/L (136-145); TOTAL PROTEIN 5.7 g/dL (6.4-8.2); eGFR NON BLACK RACES > 60 (>60)
[2019-12-18 06:19] LABS: CALCIUM < 5.0 mg/dL (8.5-10.1)
[2019-12-18 06:20] LABS: CREATINE KINASE 1590 Units/L (26-192)
[2019-12-18] MEDS: TUMS PO SCH (06:20)
[2019-12-18] MEDS: LEVAQUIN PREMIX IV 500 MG 500 MG/100 ML BAG IV SCH (08:40)
[2019-12-18] MEDS: PULMICORT NEB TX 0.5 MG NEB SCH (08:42)
[2019-12-18] MEDS: ROCALTROL PO SCH (08:42)
[2019-12-18] MEDS: MIRALAX POWDER (1 DOSE 17 G) PO SCH (08:43)
[2019-12-18] MEDS: VIBRAMYCIN 100 MG in D5W 250 ML IV 250 ML IV SCH (08:43)
[2019-12-18] MEDS: CLARITIN PO SCH (08:44)
[2019-12-18] MEDS: PROTONIX INJ 40 MG VIAL IVP SCH (08:44)
[2019-12-18] MEDS: HEMOCYTE-PLUS PO SCH (08:45)
[2019-12-18] MEDS: COLACE CAP 100 MG PO SCH (08:45)
[2019-12-18] MEDS: K-DUR TAB 20 MEQ PO PRN (08:46)
--- NOTE | 2019-12-18 10:11 | RAD ---
HISTORYShortness of breathSTUDYCHEST, 1 [id number]/20/2020FINDINGSPatient is rotated to the right. The heart is upper limits normal in size. No congestive heart failure is noted. The lungs are well inflated and free of acute infiltrates. No pleural effusions are identified. Bony thorax is unremarkable.IMPRESSIONNo significant abnormality identifiedElectronically signed by: CLAUDIA CLARK (Dec 18, 2019 10:09:46)
[2019-12-18 13:20] VITALS: BP 119/58
== END 2019-12-18 13:00 | disposition home health service (06) | DRG 190 ==
LOC: ER 16:10 → MED/SURG 18:53 → ICU 12-15 10:40
PROVIDERS: ADMIT Internal Medicine; ATTEND Internal Medicine
DX: E87.1 Hypo-osmolality and hyponatremia; K21.9 Gastro-esophageal reflux disease without esophagitis; K44.9 Diaphragmatic hernia without obstruction or gangrene; D64.89 Other specified anemias; Z91.81 History of falling; I10 Essential (primary) hypertension; R06.02 Shortness of breath; E87.6 Hypokalemia; J18.8 Other pneumonia, unspecified organism; E86.0 Dehydration; F41.8 Other specified anxiety disorders; J44.1 Chronic obstructive pulmonary disease with (acute) exacerbation; R94.31 Abnormal electrocardiogram [ECG] [EKG]; M62.82 Rhabdomyolysis; J44.0 Chronic obstructive pulmonary disease with (acute) lower respiratory infection; R10.84 Generalized abdominal pain
CPT/HCPCS: 36415; 36430; 36600; 71010; 71020; 71045; 71046; 71260; 74176; 74177; 80053; 81001; 82150; 82270; 82550; 82553; 82607; 82728; 82746; 82803; 83540; 83690; 83735; 84132; 84466; 84484; 85014; 85018; 85025; 85610; 86850; 86900; 86901; 86922; 87070; 87205; 87502; 87651; 93005; 94640; 94760; 96365; 96367; 97161; 99284; A4216; A4222; C9113; J1650; J1956; J2270; J2920; J3475; J3480; J3490; J7030; J7040; J7050; J7060; J7620; J7626; J8499; P9016